=== PATIENT | female | born 1940 ===

== ENCOUNTER 2017-05-30 06:06 | Day surgery (SDC) | payer MEDICARE ==
[2017-05-23 14:24] VITALS: BMI 29.2
--- NOTE | 2017-05-30 07:10 | CP.SDSHP ---
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 All questions addressed with pt to satisfaction. NPO status confirmed and maintained. Medical optimization is in the chart. No guarantees given nor implied to patient. Pt is to follow up with Dr. Luis as an outpatient. Pt to be admitted post- operatively to Dr. Trevizo's service. - Date & Time Date: 05/30/17 Time: 07:00 Short Stay Discharge - Short Stay Discharge Admitting Diagnosis/Reason for Visit: BONE TUMOR 5TH TOE RIGHT Disposition: HOME/ ROUTINE
[2017-05-30] MEDS ORDERED: Bupivacaine 0.5% Inj(30mL) ONE (07:16)
[2017-05-30] MEDS ORDERED: Lidocaine 2% Inj (20ml) ONE (07:16)
[2017-05-30] MEDS ORDERED: Gentamicin 80 mg/2mL Inj. ONE (07:16)
[2017-05-30] MEDS ORDERED: levoFLOXacin 500 mg in D5W 500 MG/100 ML BAG IVPB ONE (07:46)
[2017-05-30] MEDS ORDERED: Midazolam 2 MG/2 ML VIAL ONE (07:53)
[2017-05-30] MEDS ORDERED: Propofol 10 mg/ml Inj (20 ML) ONE (07:53)
[2017-05-30] MEDS ORDERED: Lactated Ringer's 1,000 ML IV SCH (08:42)
[2017-05-30] MEDS ORDERED: HYDROmorphone 0.5 mg/0.5 ml ISec IVP PRN (08:42)
[2017-05-30] MEDS ORDERED: Oxycodone/Acetaminophen 5/325 mg Tab PO PRN (08:43)
--- NOTE | 2017-05-30 09:03 | PCM.SURG1 ---
Surgeon's Initial Post Op Note - Surgeon's Notes Surgeon: Dr. Luis Sectionizer: Dr. Kemp PGY-2 Type of Anesthesia: IV Sedation, Local Anesthesia Administered By: Dr. Flal Pre-Operative Diagnosis: painful hammertoe deformity right foot 5th digit with bone tumor Operative Findings: see operative report Post-Operative Diagnosis: same Operation Performed: arthroplasty right foot 5th digit with bone biopsy Specimen/Specimens Removed: bone right foot 5th middle phalanx, soft tissue right 5th digit Estimated Blood Loss: EBL {In ML}: 1 Blood Products Given: N/A Post-Op Condition: Good Date of Surgery/Procedure: 05/30/17 Time of Surgery/Procedure: 07:45
[2017-05-30] MEDS ORDERED: Oxycodone/Acetaminophen 5/325 mg Tab ONE (09:30)
[2017-05-30] MEDS: Oxycodone/Acetaminophen 5/325 mg Tab PO PRN (09:30)
--- NOTE | 2017-05-30 09:53 | RAD ---
PROCEDURE: Right Foot Radiographs. HISTORY: s/p right foot surgery COMPARISON: Prior right foot x-ray series 0 04/30/2017. FINDINGS: BONES: Patient may have undergone resection of in a of a large portion of the middle phalanx of the small digit versus interval erosion. Clinically correlate here. No emphysema soft tissues are identified. Heterotopic calcifications are appreciated dorsally once again. 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 Degenerate changes seen throughout the joints of the right foot diffusely once again. Local soft tissue edema is seen medial to the 1st metatarsophalangeal joint as well as throughout the right small digit. . JOINTS: See above. SOFT TISSUES: See above. OTHER FINDINGS: None. IMPRESSION: Postop changes middle phalanx right small digit versus erosion, potentially related to osteomyelitis. Further clinical correlation is advised. No acute fracture or dislocation. Prior bunionectomy suggested,once again. 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
[2017-05-30] MEDS ORDERED: levoFLOXacin 500 mg in D5W 500 MG/100 ML BAG IVPB SCH (10:00)
--- NOTE | 2017-05-30 22:07 | OP ---
PROCEDURE DATE: 05/30/2017 PREOPERATIVE DIAGNOSIS: Right foot fifth digit painful hammer toe deformity with exostosis. POSTOPERATIVE DIAGNOSIS: Right foot fifth digit painful hammer toe deformity with exostosis. NAME OF PROCEDURE: Arthroplasty of right fifth digit with bone biopsy. SURGEON: Dr. Luis. NANOSYSTEMS ENGINEER: Dr. Kemp, PGY2. BURGLAR ALARM MECHANIC: Dr. Fall. TYPE OF ANESTHESIA: IV sedation with local. INDICATIONS: The patient is a 76-year-old female with the above diagnosis. The patient has exhausted all conservative treatments at this time and now requests surgical intervention. Of note, patient states she has had a painful bump to the side of her right fifth toe for the past two months in duration. Patient has also had history of infection to the same toe recently. Had been on antibiotics as an outpatient. The patient *------* explanation of risks, benefits and complications and alternatives for the surgical procedure. No guarantees were given nor implied. *------* was confirmed prior to taking the patient to the operating room. PREPARATION: The patient was brought to the operating room and placed on the operating room table in supine position. After induction of IV sedation, the patient received a total of 6 mL of a 1:1 mixture of 0.5% Marcaine plain and 2% lidocaine plain in local block fashion to the right foot. Once local anesthesia was achieved, the foot was then prepped and draped in the usual sterile manner. Esmarch was utilized to exsanguinate the patient's right foot, and pneumatic ankle tourniquet was then inflated to 250 mmHg and the procedure began. DESCRIPTION OF PROCEDURE: Arthroplasty of right fifth digit with bone biopsy. Attention was then drawn to the dorsal aspect of the right foot fifth digit where a hammer toe deformity was noted to the DIPJ of the right fifth digit. Using a #15 blade, an approximately 3 cm incision was made over the DIPJ of the right fifth digit. The incision was extended down through superficial subcutaneous tissue. Once the extensor tendon was identified, #15 blade was utilized to tenotomize the tendon at the level of the DIPJ. The tendon was then reflected proximally and distally to expose the DIPJ. At this time, a #15 blade was utilized to remove the collateral ligament medial and laterally to expose the head of the middle phalanx of the fifth digit. At this time, a double action bone cutter was utilized to excise the head of the middle phalanx, which was then passed off the operative field and sent for both bone biopsy and pathology. As this cut was made, there appeared to be a white tophus-type material within the tendon itself and the bone was excised. At this time, a bone rasp was utilized to smooth all roughened edges of the distal aspect of the remaining middle phalanx. Additionally, the rasp was utilized to remove the cartilage off the head of the proximal phalanx. A sterile normal saline was utilized to copiously flush the surgical wound. The extensor tendon was then repaired using 2-0 Vicryl suture, 2-0 Vicryl suture was utilized to close the subcutaneous tissues, 3-0 nylon suture was then utilized to close the skin edges using simple suture technique. It should be noted that during the procedure, the patient received an additional 6 mL of 1% lidocaine plain. The foot was then cleansed with sterile saline, dried and then a dressing consisting of Betadine-soaked Adaptic, DSD, Kerlix and lightly wrapped Coban was then applied to the right foot. Immediate capillary refill time was noted to all digits of the right foot. POSTOPERATIVE CONDITION: The patient tolerated the anesthesia and procedure well and was escorted to the recovery room with vital signs stable, neurovascular status intact to the right foot. The patient will be admitted postoperatively for observation under Dr. Trevizo's service. Podiatry will continue to follow the patient while she remains in-house. The patient will follow up with Dr. Luis as an outpatient. Richelle Luis DPM
[2017-05-31 07:59] VITALS: RESP 20
[2017-05-31] MEDS ORDERED: levoFLOXacin 500 MG TAB PO SCH (10:00)
--- NOTE | 2017-05-31 11:52 | CP.PCM.PN ---
<ViridianaAlee - Last Filed: 05/31/17 11:48> Subjective - Date & Time of Evaluation Date of Evaluation: 05/31/17 Time of Evaluation: 10:15 - Subjective Subjective: 76 yo diabetic female pt seen at bedside this morning POD#1 right foot 5th digit arthroplasty w/ excision of bone mass. Pt seen resting comfortably at bedside this morning. Denies f/n/v/c/sob/cp overnight.Does complain of some slight tenderness to 5th toe today, however does say pain medication is helping. Says she has not received the surgical shoe yet and is waiting for physical therapy. Denies any other problems at this time. Objective - Vital Signs/Intake and Output Vital Signs (last 24 hours): Temp Pulse Resp BP Pulse Ox 98.3 F 60 20 110/62 99 05/31/17 07:58 05/31/17 10:41 05/31/17 07:58 05/31/17 10:41 05/31/17 07:58 Intake and Output: 05/31/17 05/31/17 06:59 18:59 Intake Total 780 Balance 780 - Medications Medications: Current Medications Acetaminophen (Tylenol 325mg Tab) 650 mg PO Q4H PRN PRN Reason: Pain, Mild (1-3) Alendronate Sodium (Fosamax) 70 mg PO Q7D@0600 [facility] Levofloxacin (Levaquin) 500 mg PO DAILY [facility] Last Admin: 05/31/17 10:42 Dose: 500 mg Losartan Potassium (Cozaar) 25 mg PO DAILY [facility] Last Admin: 05/31/17 10:41 Dose: 25 mg Metformin HCl (Glucophage) 500 mg PO DAILY [facility] Last Admin: 05/31/17 10:41 Dose: Not Given Oxycodone/Acetaminophen (Percocet 5/325 Mg Tab) 1 tab PO Q4H PRN PRN Reason: Pain, moderate (4-7) Stop: 06/02/17 08:44 Last Admin: 05/31/17 08:05 Dose: 1 tab Oxycodone/Acetaminophen (Percocet 5/325 Mg Tab) 2 tab PO Q4H PRN PRN Reason: Pain, severe (8-10) Stop: 06/02/17 08:44 Last Admin: 05/30/17 09:30 Dose: 2 tab - Constitutional Appears: Well, Non-toxic, No Acute Distress - Extremities Exam Extremities Exam: absent: Calf Tenderness Additional comments: Right foot focused: Dressing appears c/d/i to right foot VASC- pedal pulses are palpable, skin temp runs warm to cool, cft < 3 sec to all digits, mild edema noted to distal-lateral forefoot NEURO- pedal sensation is grossly intact DERM- surgical incision site over dorsum of 5th digit appears well-coapted, no dehisence, no drainage, no erythema, no calor, no signs infection ORTHO- slight tenderness palp of 5th digit - Neurological Exam Neurological Exam: Alert, Awake, Oriented x3 - Psychiatric Exam Psychiatric exam: Normal Affect, Normal Mood Assessment and Plan - Assessment and Plan (Free Text) Assessment: 76 yo female pt POD#1 right foot 5th digit arthroplasty w/ excision of bone mass Plan: Pt S&E at bedside Discussed in detail with attending Dr. Oliveira Chart labs and vitals reviewed: afebrile Dressing changed with adaptic, DSD, kerlix and KATHY wrap Pt is to keep dressing c/d/i Pending physical therapy evaluation today Full WBAT with surgical shoe to right foot, advised pt to avoid weight to forefoot Stable per podiatry service Pt is to f/u with Dr. Luis at the wound care center next week <Richelle Luis - Last Filed: 05/31/17 14:26> Objective - Vital Signs/Intake and Output Vital Signs (last 24 hours): Temp Pulse Resp BP Pulse Ox 98.3 F 60 20 110/62 99 05/31/17 07:58 05/31/17 10:41 05/31/17 07:58 05/31/17 10:41 05/31/17 07:58 Intake and Output: 05/31/17 05/31/17 06:59 18:59 Intake Total 780 Balance 780 - Medications Medications: Current Medications Acetaminophen (Tylenol 325mg Tab) 650 mg PO Q4H PRN PRN Reason: Pain, Mild (1-3) Alendronate Sodium (Fosamax) 70 mg PO Q7D@0600 [facility] Levofloxacin (Levaquin) 500 mg PO DAILY [facility] Last Admin: 05/31/17 10:42 Dose: 500 mg Losartan Potassium (Cozaar) 25 mg PO DAILY [facility] Last Admin: 05/31/17 10:41 Dose: 25 mg Metformin HCl (Glucophage) 500 mg PO DAILY [facility] Last Admin: 05/31/17 10:41 Dose: Not Given Oxycodone/Acetaminophen (Percocet 5/325 Mg Tab) 1 tab PO Q4H PRN PRN Reason: Pain, moderate (4-7) Stop: 06/02/17 08:44 Last Admin: 05/31/17 08:05 Dose: 1 tab Oxycodone/Acetaminophen (Percocet 5/325 Mg Tab) 2 tab PO Q4H PRN PRN Reason: Pain, severe (8-10) Stop: 06/02/17 08:44 Last Admin: 05/30/17 09:30 Dose: 2 tab Attending/Attestation - Attestation I have personally seen and examined this patient.: Yes I have fully participated in the care of the patient.: Yes I have reviewed all pertinent clinical information, including history, physical exam and plan: Yes
[2017-05-31 15:39] VITALS: BP 137/64; PULSE 61; TEMP 97.6; O2SAT 96
--- NOTE | 2017-05-31 16:29 | CP.PCM.PN ---
Subjective - Date & Time of Evaluation Date of Evaluation: 05/31/17 Time of Evaluation: 16:15 - Subjective Subjective: Pt is being discharged today. As per request of Dr Trevizo Rx given for a rolling walker. As per request of Dr Richardson Rx given for Levaquin 500 mg po daily for 7 days. Patient is to follow up with her PMDs as advised. Objective - Vital Signs/Intake and Output Vital Signs (last 24 hours): Temp Pulse Resp BP Pulse Ox 97.6 F 61 20 137/64 96 05/31/17 15:38 05/31/17 15:38 05/31/17 15:38 05/31/17 15:38 05/31/17 15:38 Intake and Output: 05/31/17 05/31/17 06:59 18:59 Intake Total 780 Balance 780 - Medications Medications: Current Medications Acetaminophen (Tylenol 325mg Tab) 650 mg PO Q4H PRN PRN Reason: Pain, Mild (1-3) Alendronate Sodium (Fosamax) 70 mg PO Q7D@0600 [facility] Levofloxacin (Levaquin) 500 mg PO DAILY [facility] Last Admin: 05/31/17 10:42 Dose: 500 mg Losartan Potassium (Cozaar) 25 mg PO DAILY [facility] Last Admin: 05/31/17 10:41 Dose: 25 mg Metformin HCl (Glucophage) 500 mg PO DAILY [facility] Last Admin: 05/31/17 10:41 Dose: Not Given Oxycodone/Acetaminophen (Percocet 5/325 Mg Tab) 1 tab PO Q4H PRN PRN Reason: Pain, moderate (4-7) Stop: 06/02/17 08:44 Last Admin: 05/31/17 08:05 Dose: 1 tab Oxycodone/Acetaminophen (Percocet 5/325 Mg Tab) 2 tab PO Q4H PRN PRN Reason: Pain, severe (8-10) Stop: 06/02/17 08:44 Last Admin: 05/30/17 09:30 Dose: 2 tab
[2017-05-31] MEDS: Oxycodone/Acetaminophen 5/325 mg Tab PO PRN (17:51)
--- NOTE | 2017-06-01 01:02 | DS ---
HISTORY OF PRESENT ILLNESS: The patient is 76 years old female who was brought to same day surgery because of right fifth digit bone biopsy since she was found to have bony mass on the fifth digit, so she underwent arthroplasty and biopsy done. The patient was admitted under Dr. Luis's service. She has surgical site. PAST MEDICAL HISTORY: Otherwise, her past medical history is significant for; 1. Noninsulin-dependent diabetes. 2. History of osteoporosis. 3. Hypertension. ALLERGIES: SHE IS NOT ALLERGIC TO ANY MEDICATIONS. MEDICATIONS AT HOME: The patient is on metformin 500 daily, losartan 25 daily, Zyrtec 10 mg daily, Fosamax 70 mg once a week, Percocet as needed, Levaquin 500 daily, and Tylenol as needed. SOCIAL HISTORY: She lives by herself. Denies smoking or drinking alcohol. REVIEW OF SYSTEMS: Some discomfort to the right foot at surgical site; however, she is ambulating fine while going to the bathroom by herself. PHYSICAL EXAMINATION: VITAL SIGNS: She is afebrile, pulse 61, respirations 20 and blood pressure 127/64. LUNGS: Bilateral clear airflow. No rhonchi or crackles. HEART: S1 and S2 audible. ABDOMEN: Soft and nontender. No rebound. No guarding. NEUROLOGIC: She is awake and alert, able to communicate and ambulatory. ASSESSMENT: 1. Right fifth digit bony tumor, status post excision of arthroplasty. 2. Noninsulin-dependent diabetes. 3. Hypertension. PLAN: The patient is being discharged home on Percocet. She will resume her medications as prior to admission that include metformin and losartan. She will follow up with Dr. Luis as outpatient for her wound care. Holden Trevizo MD
== END 2017-05-31 18:50 | disposition home or self-care (01) ==
LOC: SDS 06:06 → 5RSO 10:34 → SDS 05-31 18:50
PROVIDERS: ATTEND Internal Medicine
DX: M20.41 Other hammer toe(s) (acquired), right foot (principal)
CPT/HCPCS: 20240; 28286; 73630; 82948 ×2; 88304; 88307; 88311; 97116; 97161; 97530; G8978; G8979; G8980; J1170; J2250; J2704; J7120 ×2

== ENCOUNTER 2018-01-03 10:39 | Inpatient (IN) | payer MEDICARE ==
[2018-01-03 11:08] VITALS: BMI 28.3
--- NOTE | 2018-01-03 11:34 | ED PDOC ---
Arrival/HPI - General Time Seen by Provider: 01/03/18 11:04 Historian: Patient - History of Present Illness Narrative History of Present Illness (Text): 01/03/18 11:31 77 year old female, with past medical history of hypertension and diabetes type II, presents to the Emergency department complaining of lower abdominal discomfort for past 2 days. Patient informs the onset of discomfort began shortly after getting colonoscopy done on Saturday, yet the result for colonoscopy was benign. Patient denies difficulty eating or urinating. Patient informs eating 2 eggs, muffin and some coffee prior to arrival. Patient denies any fever, chills, nausea, vomiting, chest pain, hematuria, shortness of breath , trauma or any other complaints. PMD: Dr. Ervin Time/Duration: < week Symptom Onset: Gradual Symptom Course: Unchanged Quality: Aching Activities at Onset: Light Context: Home Past Medical History - Provider Review Nursing Documentation Reviewed: Yes - Infectious Disease Hx of Infectious Diseases: None - Cardiac Hx Pacemaker: No - Neurological Hx Paralysis: No - Endocrine/Metabolic Hx Diabetes Mellitus Type 2: Yes - Hematological/Oncological Hx Blood Transfusions: No - Musculoskeletal/Rheumatological Hx Musculoskeletal Disorders: Yes - Psychiatric Hx Physical Abuse: No Hx Substance Use: No - Surgical History Hx Hysterectomy: Yes Hx Orthopedic Surgery: Yes (Sum[facility] knee surgery) Other/Comment: Colonoscopy/Endoscopy - Anesthesia Hx Anesthesia: Yes Hx Anesthesia Reactions: No Hx Malignant Hyperthermia: No - Suicidal Assessment Feels Threatened In Home Enviroment: No Family/Social History - Physician Review Nursing Documentation Reviewed: Yes Family/Social History: No Known Family HX Smoking Status: Never Smoked Hx Alcohol Use: No Hx Substance Use: No Allergies/Home Meds Allergies/Adverse Reactions: Allergies No Known Allergies Allergy (Verified 05/20/16 14:28) Home Medications: Home Meds Medication Instructions Recorded Confirmed metFORMIN [glucOPHAGE] 500 mg PO BID 05/20/16 01/03/18 Alendronate [Fosamax] 70 mg PO WED 05/23/17 01/03/18 Losartan Potassium 50 mg PO DAILY 05/23/17 01/03/18 Review of Systems - Physician Review All systems were reviewed & negative as marked: Yes - Review of Systems Constitutional: Normal. absent: Fevers Eyes: Normal ENT: Normal Respiratory: Normal. absent: SOB Cardiovascular: Normal. absent: Chest Pain Gastrointestinal: Abdominal Pain. absent: Diarrhea, Nausea, Vomiting Genitourinary Female: Normal. absent: Hematuria Musculoskeletal: Normal Skin: Normal Neurological: Normal Endocrine: Normal Hemo/Lymphatic: Normal Psychiatric: Normal Physical Exam Vital Signs Reviewed: Yes Vital Signs Temp Pulse Resp BP Pulse Ox 01/03/18 15:31 98.3 F 100 H 16 132/81 98 01/03/18 12:26 96 H 18 127/71 95 01/03/18 11:13 98.1 F 104 H 18 129/75 95 Temperature: Afebrile Blood Pressure: Normal Pulse: Tachycardic Respiratory Rate: Normal Appearance: Positive for: Well-Appearing, Non-Toxic, Comfortable Pain Distress: None Mental Status: Positive for: Alert and Oriented X 3 - Systems Exam Head: Present: Atraumatic, Normocephalic Pupils: Present: PERRL Extroacular Muscles: Present: EOMI Conjunctiva: Present: Normal Mouth: Present: Moist Mucous Membranes Neck: Present: Normal Range of Motion Respiratory/Chest: Present: Clear to Auscultation, Good Air Exchange. No: Respiratory Distress, Accessory Muscle Use Cardiovascular: Present: Regular Rate and Rhythm, Normal S1, S2. No: Murmurs Abdomen: Present: Tenderness (minimal tenderness to palpation across lower abdomen. No nonfocal tenderness, garuding or rebound.), Normal Bowel Sounds. No : Distention, Peritoneal Signs, Rebound, Guarding, Hernias Back: Present: Normal Inspection Upper Extremity: Present: Normal Inspection. No: Cyanosis, Edema Lower Extremity: Present: Normal Inspection. No: Edema Neurological: Present: GCS=15, CN II-XII Intact, Speech Normal Skin: Present: Warm, Dry, Normal Color. No: Rashes Psychiatric: Present: Alert, Oriented x 3, Normal Insight, Normal Concentration , Anxious Medical Decision Making ED Course and Treatment: 01/03/18 11:36 Impression: 77 year old female presents to the Emergency department for lower abdominal discomfort. Plan: -- CT of Abdomen/Pelvis -- Labs -- Urinalysis -- Reassess and disposition Progress Notes: 01/03/18 14:09 CT of Abdomen/Pelvis reviewed by radiologist, shows perforation of the sigmoid colon with multiple pockets of free air. 01/03/18 15:46 Chest X-ray reviewed by radiologist, shows no active disease. - Lab Interpretations Lab Results: 01/03/18 11:45 01/03/18 11:45 Lab Results 01/03/18 14:40: Blood Type Confirm O POSITIVE 01/03/18 14:00: Blood Type O POSITIVE, Antibody Screen Negative, BBK History Checked No verified bt 01/03/18 11:45: PT 12.7 H, INR 1.11 H 01/03/18 11:45: Sodium 139, Potassium 4.0, Chloride 103, Carbon Dioxide 22, Anion Gap 17, BUN 13, Creatinine 0.7, Est GFR ( Amer) > 60, Est GFR (Non- Af Amer) > 60, Random Glucose 131 H, Calcium 9.3, Total Bilirubin 0.5, AST 19, ALT 26, Alkaline Phosphatase 79, Total Protein 7.5, Albumin 3.8, Globulin 3.7, Albumin/Globulin Ratio 1.0 L 01/03/18 11:45: WBC 14.4 H D, RBC 4.23, Hgb 10.7 L, Hct 33.8 L, MCV 79.9 L D, MCH 25.3, MCHC 31.7, RDW 16.9 H, Plt Count 272, MPV 9.7, Gran % 77.4 H, Lymph % (Auto) 12.1 L, [place] % (Auto) 9.0 H, Eos % (Auto) 1.4 L, Baso % (Auto) 0.1, Gran # 11.15 H, Lymph # (Auto) 1.8, [place] # (Auto) 1.3 H, Eos # (Auto) 0.2, Baso # ( Auto) 0.02 - RAD Interpretation Radiology Orders: 01/03/18 11:32 ABDOMEN & PELVIS [ABD PELVIS PO & IV CONTRAST] [CT] Stat 01/03/18 13:54 CHEST PORTABLE [RAD] Stat - Medication Orders Current Medication Orders: Sodium Chloride (Sodium Chloride 0.9%) 1,000 mls @ 100 mls/hr IV .Q10H [facility] Last Admin: 01/03/18 14:11 Dose: 100 mls/hr eMAR Start Stop Document 01/03/18 14:11 HP (Rec: 01/03/18 14:12 HP [email or web address] Intravenous Solution Start Date 01/03/18 Start Time 14:12 Discontinued Medications Hydromorphone HCl (Dilaudid) 0.5 mg IVP STAT STA Stop: 01/03/18 14:07 Last Admin: 01/03/18 14:12 Dose: 0.5 mg MAR Pain Assessment Document 01/03/18 14:12 HP (Rec: 01/03/18 14:12 HP [facility] [email or web address] Pain Reassessment Is this a pain reassessment? No IVP Administration Document 01/03/18 14:12 HP (Rec: 01/03/18 14:12 HP [email or web address] Charges for Administration # of IVP Administrations 1 Piperacillin Sod/Tazobactam Sod (Zosyn 4.5 Gm In Ns 100ml) 4.5 gm in 100 mls @ 200 mls/hr IVPB STAT STA PRN Reason: Protocol Stop: 01/03/18 14:27 Last Admin: 01/03/18 14:10 Dose: 200 mls/hr eMAR Start Stop Document 01/03/18 14:10 HP (Rec: 01/03/18 14:11 HP [email or web address] Intravenous Solution Start Date 01/03/18 Start Time 14:10 End Date 01/03/18 End time 14:40 Total Infusion Time 30 - Scribe Statement The provider has reviewed the documentation as recorded by the Scribe Kim Denton. All medical record entries made by the Scribe were at my direction and personally dictated by me. I have reviewed the chart and agree that the record accurately reflects my personal performance of the history, physical exam, medical decision making, and the department course for this patient. I have also personally directed, reviewed, and agree with the discharge instructions and disposition. Disposition/Present on Arrival - Present on Arrival Any Indicators Present on Arrival: No History of DVT/PE: No History of Uncontrolled Diabetes: No Urinary Catheter: No History of Decub. Ulcer: No History Surgical Site Infection Following: None - Disposition Have Diagnosis and Disposition been Completed?: Yes Diagnosis: Perforated viscus Disposition: HOSPITALIZED Disposition Time: 14:15 Patient Plan: Admission Patient Problems: Current Active Problems Problem Status Onset Perforated viscus Acute Condition: STABLE Referrals: [facility], [Non-Staff] - Follow up with primary
[2018-01-03] MEDS ORDERED: Iohexol 240 (50 ml) ONE (11:37)
[2018-01-03] MEDS ORDERED: Iohexol 350 MG/100 ML VIAL ONE (11:45)
[2018-01-03 11:59] LABS: BASO # 0.02 K/mm3 (0.0-2.0); BASO % 0.1 % (0.0-3.0); EOS # 0.2 (0.0-0.7); EOS % 1.4 % (1.5-5.0); GRAN # 11.15 (1.4-6.5); GRAN % 77.4 % (50.0-68.0); HEMOGLOBIN 10.7 g/dL (12.0-16.0); LYMPH # 1.8 (1.2-3.4); LYMPH % 12.1 % (22.0-35.0); MEAN CELL VOLUME 79.9 fl (80.0-105.0); MEAN CORPUSCULAR HEMOGLOBIN 25.3 pg (25.0-35.0); MEAN CORPUSCULAR HGB CONC 31.7 g/dl (31.0-37.0); MEAN PLATELET VOLUME 9.7 fl (7.0-11.0); MONO # 1.3 (0.1-0.6); RBC 4.23 10^6/uL (3.5-6.1); RED CELL DISTRIBUTION WIDTH 16.9 % (11.5-14.5); WHITE BLOOD COUNT 14.4 10^3/ul (4.5-11.0)
[2018-01-03 12:08] LABS: ALBUMIN 3.8 g/dL (3.0-4.8); ALT/SGPT 26 U/L (7-56); AST/SGOT 19 U/L (14-36); BLOOD UREA NITROGEN 13 mg/dL (7-21); CALCIUM 9.3 mg/dL (8.4-10.5); GFR AFRICAN-AMERICAN > 60; GFR NON-AFRICAN AMERICAN > 60
[2018-01-03] MEDS ORDERED: HYDROmorphone 0.5 mg/0.5 ml ISec IM STA (13:55)
[2018-01-03] MEDS ORDERED: Piperacill/Tazo 4.5gm in NS 4.5 GM/100 ML BAG IVPB STA (13:58)
[2018-01-03] MEDS ORDERED: Sodium Chloride 0.9% 1,000 ML IV SCH (14:00)
--- NOTE | 2018-01-03 14:05 | CT ---
PROCEDURE: CT Abdomen and Pelvis with contrast HISTORY: pain s/p colonoscopy COMPARISON: None. TECHNIQUE: Contrast dose: 100 cc of Omni 350 Radiation dose: Total exam DLP = 568 mGy-cm. This CT exam was performed using one or more of the following dose reduction techniques: Automated exposure control, adjustment of the mA and/or kV according to patient size, and/or use of iterative reconstruction technique. FINDINGS: LOWER THORAX: Unremarkable. LIVER: Unremarkable. No gross lesion or ductal dilatation. GALLBLADDER AND BILE DUCTS: Unremarkable. PANCREAS: Unremarkable. No gross lesion or ductal dilatation. SPLEEN: Unremarkable. ADRENALS: Unremarkable. No mass. KIDNEYS AND URETERS: Unremarkable. No hydronephrosis. No solid mass. VASCULATURE: Unremarkable. No aortic aneurysm. BOWEL: There is evidence of bowel perforation at the sigmoid colon. There is a large amount of extra luminal air surrounding the sigmoid. The air can also be seen in the right pericolic gutter and extending into the right inguinal region. Small amounts of air dissect along the aorta anteriorly. This can be seen on image 58. Inflammatory changes are also seen adjacent to the sigmoid colon laterally. The findings were reviewed with Dr. See at 2 p.m. APPENDIX: Normal appendix. PERITONEUM: As above LYMPH NODES: Unremarkable. No enlarged lymph nodes. BLADDER: Unremarkable. REPRODUCTIVE: Unremarkable. BONES: No acute fracture. OTHER FINDINGS: None. IMPRESSION: Perforation of the sigmoid colon with multiple pockets of free air. See comment
[2018-01-03] MEDS ORDERED: HYDROmorphone 0.5 mg/0.5 ml ISec IVP STA (14:06)
[2018-01-03 14:46] LABS: INR 1.11 (0.93-1.08); PROTHROMBIN TIME 12.7 SECONDS (9.4-12.5)
[2018-01-03] MEDS ORDERED: Morphine 4 mg/ml ISec IVP PRN (15:35)
--- NOTE | 2018-01-03 15:37 | RAD ---
HISTORY: pain COMPARISON: 05/23/2017 FINDINGS: LUNGS: No active pulmonary disease. PLEURA: No significant pleural effusion identified, no pneumothorax apparent. CARDIOVASCULAR: Normal. OSSEOUS STRUCTURES: No significant abnormalities. VISUALIZED UPPER ABDOMEN: Normal. OTHER FINDINGS: None. IMPRESSION: No active disease.
--- NOTE | 2018-01-03 15:46 | CP.PCM.CON ---
History of Present Illness - History of Present Illness History of Present Illness: Surgery consult note for Dr. Devan Acosta DO, PGY - 1 Reason For Consult: Bowel Perf HPI: 77 female with past medical history pertinent for diverticular disease presents with 2 day history of acute onset right lower quadrant pain that began on Saturday following a colonoscopy at [facility]. The patient states that the pain was intense and began right after the colonscopy and has been constant since then. The pain is localized to the lower abdomen bilaterally. The patient decided to come in to the hospital today when the pain became unbearable. The pain is associated with nausea but no vomiting. She has had one bowel movement following the colonoscopy. The patient did travel to [facility] two months ago after which she had diarrhea and flu like symptoms including fevers and chills. She did not have a flu test. Past Surgical History: Arthroplasty, Hernia repair, Total hysterectomy Past Medical History: Diabetes, hernia, hypertension, diverticular disease Allergies: Denies Social History: Denies tobacco, alcohol and illicit drug use Hospitalizations: May 2017 for Arthroplasty of 5th digit on R foot Family History: Non-contributory Medications: Metformin, Losartan, Alendronate Review of Systems: 12 point review of systems obtained, and are negative except for HPI Past Patient History - Infectious Disease Hx of Infectious Diseases: None - Past Social History Smoking Status: Never Smoked - CARDIAC Hx Pacemaker: No - NEUROLOGICAL Hx Paralysis: No - ENDOCRINE/METABOLIC Hx Diabetes Mellitus Type 2: Yes - HEMATOLOGICAL/ONCOLOGICAL Hx Blood Transfusions: No - MUSCULOSKELETAL/RHEUMATOLOGICAL Hx Musculoskeletal Disorders: Yes - PSYCHIATRIC Hx Physical Abuse: No Hx Substance Use: No - SURGICAL HISTORY Hx Hysterectomy: Yes Hx Orthopedic Surgery: Yes (Sumanth knee surgery) Other/Comment: Colonoscopy/Endoscopy - ANESTHESIA Hx Anesthesia: Yes Hx Anesthesia Reactions: No Hx Malignant Hyperthermia: No Meds Allergies/Adverse Reactions: Allergies Allergy/AdvReac Type Severity Reaction Status Date / Time No Known Allergies Allergy Verified 05/20/16 14:28 - Medications Medications: Current Medications Sodium Chloride (Sodium Chloride 0.9%) 1,000 mls @ 100 mls/hr IV .Q10H [facility] Last Admin: 01/03/18 14:11 Dose: 100 mls/hr Physical Exam - Additional Findings Additional findings: Physical Exam: Vital Signs as below Const'l: awake alert & oriented x 4, no acute distress Head/Neck: +no lymphadenopathy; neck supple, no jvd, trachea midline, carotid midline, no cervical/head mass Eyes: pupils equally reactive to light and accommodation, nonicteric sclera, extraocular intact ENT: auditory acuity grossly intact, throat not congested, no nasal deformity Cardio: regular rate, regular rhythm, no murmurs rubs gallops, no carotid bruit, normal s1, s2 Pulm: no accessory muscle use, equal normal breath sounds bilaterally, clear to ausculation bilaterally Abd: +tender to palpation in both right and left lower quadrants; + voluntary guarding localized to suprapubic region no rebound, soft, not rigid, non-distended Derm: no rashes, no ulcers, no lesions Extr: no edema, no cyanosis, no calf tenderness, no lesions, no varicosities Neuro: cranial nerves II-XII grossly intact, upper extremity and lower extremity 5/5 muscle strength bilaterally, no loss of sensation in upper extremities, lower extremities bilaterally Results - Vital Signs Recent Vital Signs: Last Vital Signs Temp 98.3 F 01/03/18 15:31 Pulse 100 H 01/03/18 15:31 Resp 16 01/03/18 15:31 BP 132/81 01/03/18 15:31 Pulse Ox 98 01/03/18 15:31 - Labs Result Diagrams: 01/03/18 11:45 01/03/18 11:45 Labs: Laboratory Results - last 24 hr 01/03/18 01/03/18 01/03/18 11:45 11:45 11:45 WBC 14.4 H D RBC 4.23 Hgb 10.7 L Hct 33.8 L MCV 79.9 L D MCH 25.3 MCHC 31.7 RDW 16.9 H Plt Count 272 MPV 9.7 Gran % 77.4 H Lymph % (Auto) 12.1 L [place] % (Auto) 9.0 H Eos % (Auto) 1.4 L Baso % (Auto) 0.1 Gran # 11.15 H Lymph # (Auto) 1.8 [place] # (Auto) 1.3 H Eos # (Auto) 0.2 Baso # (Auto) 0.02 PT 12.7 H INR 1.11 H Sodium 139 Potassium 4.0 Chloride 103 Carbon Dioxide 22 Anion Gap 17 BUN 13 Creatinine 0.7 Est GFR ( Amer) > 60 Est GFR (Non-Af Amer) > 60 Random Glucose 131 H Calcium 9.3 Total Bilirubin 0.5 AST 19 ALT 26 Alkaline Phosphatase 79 Total Protein 7.5 Albumin 3.8 Globulin 3.7 Albumin/Globulin Ratio 1.0 L Blood Type Antibody Screen BBK History Checked 01/03/18 14:00 WBC RBC Hgb Hct MCV MCH MCHC RDW Plt Count MPV Gran % Lymph % (Auto) [place] % (Auto) Eos % (Auto) Baso % (Auto) Gran # Lymph # (Auto) [place] # (Auto) Eos # (Auto) Baso # (Auto) PT INR Sodium Potassium Chloride Carbon Dioxide Anion Gap BUN Creatinine Est GFR ( Amer) Est GFR (Non-Af Amer) Random Glucose Calcium Total Bilirubin AST ALT Alkaline Phosphatase Total Protein Albumin Globulin Albumin/Globulin Ratio Blood Type O POSITIVE Antibody Screen Negative BBK History Checked No verified bt Assessment & Plan - Assessment and Plan (Free Text) Assessment: 77 year old female with pertinent history of diverticular disease presents with bowel perforation following a colonoscopy. CT abdomen/pelvis does show free around the sigmoid colon. Review of labs and vitals reveals 2 SIRS of leukocytosis 14.4 and HR of 96; Source of infection in sigmoid colon classifies patient as Septic. Chest xray was normal and does not show free air under the diaphragm. Plan: -Admit to telemetry on hospitalist service -Strict I/O -Recommend GI and ID consult -Start Ciprofloxacin and Flagyl -LR @ 125 -DVT Prophylaxis -Morphine 4mg for moderate, 6mg for severe pain -Zofran PRN -monitor vitals q2 and response to pain meds -serial abdominal series -NPO -Recs per Dr. Hartman
[2018-01-03] MEDS ORDERED: Morphine 2 mg/ml ISec IVP PRN (15:55)
[2018-01-03 16:33] LABS: URINE BILIRUBIN NEGATIVE (NEGATIVE); URINE BLOOD TRACE-INTACT (NEGATIVE); URINE GLUCOSE (UA) NEGATIVE (NEGATIVE); URINE LEUKOCYTE ESTERASE NEGATIVE Leu/uL (NEGATIVE); URINE NITRATE NEGATIVE (NEGATIVE); URINE PROTEIN NEGATIVE mg/dL (<30 mg/dL); URINE UROBILINOGEN 0.2 E.U./dL (<1 E.U./dL)
[2018-01-03 16:39] LABS: URINE APPEARANCE CLEAR (CLEAR); URINE COLOR YELLOW (YELLOW)
[2018-01-03 16:50] LABS: URINE BACTERIA FEW (NEG); URINE RBC 0 - 2 /hpf (0-2)
[2018-01-03] MEDS: Lactated Ringer's 1,000 ML IV SCH ×2 (16:54→20:03)
--- NOTE | 2018-01-03 17:34 | CP.PCM.HP ---
<Everardo Blount - Last Filed: 01/03/18 18:08> History of Present Illness - History of Present Illness History of Present Illness: Chief complaint: Abdominal pain s/p colonoscopy HPI: Patient is a 77 year old female with a past medical history significant for diverticular disease, hypertension, diabetes, and anemia who presents to [facility] with complaints of abominal pain associated with fevers and chills after colonoscopy performed on 01/01/18. Patient states that her primary care physician referred her to a dental manager after noting she was becoming anemic. Patient was then referred to [facility] for colonoscopy and future endoscopy. She relays that right after the procedure is when she began feeling the sharp bilateral lower abdominal pain rating it a 10/10. Patient states the pain was localized and non radiating. Pain was exacerbated with laying down, and relieved at times with turnnig from side to side or sitting in an upright position. Patient endorses the ability to pass gas, make bowel movements. Denies vomiting despite efforts to induce vomiting, denies chest pain, shortness of breath, diarrhea, cough. Upon being admitted patient states she was very nauseous and complained of a headache, which have been relieved with the antiemetics and pain medication given while in the emergency department. To note, patient recently has returned from a two month stay in [facility]. When patient returned she experienced bouts of diarrhea as well as the flu. PMD: Dr. Ervin Past Surgical History:Arthroplasty, Hernia repair, Total hysterectomy Past Medical History: Diabetes, hernia, hypertension, diverticular disease Allergies: Denies Social History: Denies tobacco, alcohol and illicit drug use Family History: Non-contributory Medications: Metformin, Cozaar Present on Admission - Present on Admission Any Indicators Present on Admission: No Review of Systems - Constitutional Constitutional: Chills, Fever, Headache, Night Sweats - EENT Eyes: absent: Blurred Vision, Change in Vision Nose/Mouth/Throat: absent: Nasal Congestion, Nasal Discharge - Cardiovascular Cardiovascular: absent: Chest Pain, Dyspnea - Respiratory Respiratory: absent: Cough, Dyspnea - Gastrointestinal Gastrointestinal: Abdominal Pain, Nausea. absent: Diarrhea, Vomiting - Genitourinary Genitourinary: absent: Difficulty Urinating, Dysuria - Musculoskeletal Musculoskeletal: absent: Arthralgias, Back Pain - Neurological Neurological: absent: Dizziness, Numbness - Psychiatric Psychiatric: absent: Anxiety, Difficulty Concentrating - Hematologic/Lymphatic Hematologic: absent: Easy Bleeding, Easy Bruising Past Patient History - Infectious Disease Hx of Infectious Diseases: None - Past Social History Smoking Status: Never Smoked - CARDIAC Hx Pacemaker: No - NEUROLOGICAL Hx Paralysis: No - ENDOCRINE/METABOLIC Hx Diabetes Mellitus Type 2: Yes - HEMATOLOGICAL/ONCOLOGICAL Hx Blood Transfusions: No - MUSCULOSKELETAL/RHEUMATOLOGICAL Hx Musculoskeletal Disorders: Yes - PSYCHIATRIC Hx Physical Abuse: No Hx Substance Use: No - SURGICAL HISTORY Hx Hysterectomy: Yes Hx Orthopedic Surgery: Yes (Sumanth knee surgery) Other/Comment: Colonoscopy/Endoscopy - ANESTHESIA Hx Anesthesia: Yes Hx Anesthesia Reactions: No Hx Malignant Hyperthermia: No Meds Allergies/Adverse Reactions: Allergies Allergy/AdvReac Type Severity Reaction Status Date / Time No Known Allergies Allergy Verified 05/20/16 14:28 Physical Exam - Constitutional Appears: In Acute Distress - Head Exam Head Exam: ATRAUMATIC, NORMAL INSPECTION, NORMOCEPHALIC - Eye Exam Eye Exam: EOMI, Normal appearance - ENT Exam ENT Exam: Mucous Membranes Moist, Normal Exam - Neck Exam Neck exam: Positive for: Normal Inspection - Respiratory Exam Respiratory Exam: Clear to Auscultation Bilateral, NORMAL BREATHING PATTERN. absent: Rhonchi, Wheezes - Cardiovascular Exam Cardiovascular Exam: REGULAR RHYTHM, +S1, +S2 - GI/Abdominal Exam GI & Abdominal Exam: Guarding (minimally in lower abdomen), Normal Bowel Sounds , Soft. absent: Distended, Firm, Rebound - Extremities Exam Extremities exam: Positive for: normal inspection. Negative for: pedal edema, tenderness - Back Exam Back exam: NORMAL INSPECTION - Neurological Exam Neurological exam: Alert, CN II-XII Intact, Oriented x3 - Psychiatric Exam Psychiatric exam: Normal Affect, Normal Mood - Skin Skin Exam: Intact, Normal Color, Warm Results - Vital Signs Recent Vital Signs: Last Vital Signs Temp 98.3 F 01/03/18 16:02 Pulse 89 01/03/18 16:02 Resp 16 01/03/18 16:02 BP 132/81 01/03/18 15:31 Pulse Ox 98 01/03/18 15:31 - Labs Result Diagrams: 01/03/18 11:45 01/03/18 11:45 Assessment & Plan - Assessment and Plan (Free Text) Assessment: Patient is a 77 year old female with a past medical history significant for diverticular disease, hypertension, diabetes, and anemia who presents to [facility] with complaints of abominal pain associated with fevers and chills after colonoscopy performed on 01/01/18. Plan: Abdominal pain secondary to sigmoid perforation s/p colonoscopy -CT abdomen/pelvis with contrast reveals perforation of the sigmoid colon with multiple pockets of free air with air seen in right pericolic gutter and extending into the right inguinal region. -General Surgery consulted; surgical management -Morphine PRN -Zofran PRN -Lactated Ringers@125 Leukocytosis -Flagyl and Ciprofloxacin started -Infectious disease consulted Non insulin dependent diabetes mellitus -Insulin sliding scale-low -fingerstick q6h -Continue to monitor Hypertension -Hydralazine PRN -Continue to monitor DVT/GI prophylaxis: SCDs/Protonix <Rafael Hernandez - Last Filed: 01/04/18 12:52> Results - Vital Signs Recent Vital Signs: Last Vital Signs Temp 99 F 01/04/18 12:00 Pulse 70 01/04/18 12:00 Resp 20 01/04/18 12:00 BP 106/60 01/04/18 12:00 Pulse Ox 92 L 01/04/18 12:00 - Labs Result Diagrams: 01/04/18 07:00 01/04/18 07:00 Labs: Laboratory Results - last 24 hr 01/03/18 01/04/18 01/04/18 21:43 07:00 07:00 WBC 8.2 D RBC 3.72 Hgb 9.3 L Hct 29.8 L MCV 80.1 MCH 25.0 MCHC 31.2 RDW 16.9 H Plt Count 219 MPV 9.4 Gran % 65.7 Lymph % (Auto) 18.1 L [place] % (Auto) 10.8 H Eos % (Auto) 5.2 H Baso % (Auto) 0.2 Gran # 5.39 Lymph # (Auto) 1.5 [place] # (Auto) 0.9 H Eos # (Auto) 0.4 Baso # (Auto) 0.02 Sodium 139 Potassium 3.8 Chloride 106 Carbon Dioxide 25 Anion Gap 12 BUN 11 Creatinine 0.7 Est GFR ( Amer) > 60 Est GFR (Non-Af Amer) > 60 POC Glucose (mg/dL) 108 Random Glucose 98 Calcium 8.6 Total Bilirubin 0.4 AST 18 ALT 21 Alkaline Phosphatase 66 Total Protein 6.3 Albumin 3.1 Globulin 3.3 Albumin/Globulin Ratio 0.9 L 01/04/18 01/04/18 07:55 11:07 WBC RBC Hgb Hct MCV MCH MCHC RDW Plt Count MPV Gran % Lymph % (Auto) [place] % (Auto) Eos % (Auto) Baso % (Auto) Gran # Lymph # (Auto) [place] # (Auto) Eos # (Auto) Baso # (Auto) Sodium Potassium Chloride Carbon Dioxide Anion Gap BUN Creatinine Est GFR ( Amer) Est GFR (Non-Af Amer) POC Glucose (mg/dL) 111 H 103 Random Glucose Calcium Total Bilirubin AST ALT Alkaline Phosphatase Total Protein Albumin Globulin Albumin/Globulin Ratio Attending/Attestation - Attestation I have personally seen and examined this patient.: Yes I have fully participated in the care of the patient.: Yes I have reviewed all pertinent clinical information: Yes Notes (Text): 01/04/18 12:50 Patient was seen and examined with medical biller. Agreed with assessment and plan. 77 year old female with a past medical history significant for diverticular disease, hypertension, diabetes, and anemia who presents to [facility] with complaints of abominal pain associated with fevers and chills after colonoscopy performed on 01/01/18., CT abdomen/pelvis with contrast reveals perforation of the sigmoid colon with multiple pockets of free air with air seen in right pericolic gutter and extending into the right inguinal region.Patient has been evaluated by Surgery team, no plan for surgery at this time.We will monitor closely.Continue NPO, IV fluid and IV antibiotics.We will monitor blood sugars, Management plan was discussed in detail with patient and family.. Education was provided.
--- NOTE | 2018-01-03 18:09 | CP.PCM.CON ---
History of Present Illness - History of Present Illness History of Present Illness: Infectious Disease Consultation: January 03, 2018 77 yo female who had colonoscopy done by Dr. Antonio of GI affliated with [facility] for ongoing anemia. The patient began having abdominal pain after procedure was done that was worsening. Abdominal pain worsened and she was sent to the hospital by her son (via phone call) once she told her son that she couldn't move. CT scan showing free air and signs of perforation at the sigmoid colon. Dr. Hartman of surgery is involved in the patient's care and has reviewed the films. At this point in time, medical management of the perforation. Started on Cipro and Flagyl. The patient also had a three month stay in [facility] returning in November 2017. The patient states the pain in less in the abdominal but still present. PMHx: DM, HTN, Hernia, Diverticulosis. PSHx: Bilateral knee arthroplasties, Hysterectomy (total), Hernia repair Allergies: NKDA Social Hx: No tobacco, EtOH, or illicit drug use Active Medications Acetaminophen (Tylenol 325mg Tab) 650 mg PO Q4 PRN PRN Reason: Fever >100.4 F Famotidine (Pepcid) 20 mg IVP DAILY [facility] Heparin Sodium (Porcine) (Heparin) 5,000 units SC Q12 [facility] PRN Reason: Protocol Lactated Ringer's (Lactated Ringer's) 1,000 mls @ 125 mls/hr IV .Q8H [facility] Last Admin: 01/03/18 16:54 Dose: 125 mls/hr Ciprofloxacin (Cipro 400mg/200ml Dsw) 400 mg in 200 mls @ 133.3 mls/hr IVPB Q12 [facility] PRN Reason: Protocol Stop: 01/04/18 11:31 Metronidazole (Flagyl) 500 mg in 100 mls @ 100 mls/hr IVPB Q8 [facility] PRN Reason: Protocol Insulin Human Regular (Humulin R Low) 0 units SC ACHS [facility] PRN Reason: Protocol Morphine Sulfate (Morphine) 4 mg IVP Q4 PRN PRN Reason: Pain, moderate (4-7) Morphine Sulfate (Morphine) 6 mg IVP Q4 PRN PRN Reason: Pain, severe (8-10) Ondansetron HCl (Zofran Inj) 4 mg IVP Q4 PRN PRN Reason: Nausea/Vomiting Pantoprazole Sodium (Protonix Inj) 40 mg IVP DAILY [facility] Family Hx: none given ROS: Chills, Fevers, Headaches, Night sweats, Abdominal Pain No chest pain, melena, hematuria, hematemesis, hematochezia, depression, anxiety , diarrhea, vision loss, hearing loss, loss of consciousness. Past Patient History - Infectious Disease Hx of Infectious Diseases: None - Past Social History Smoking Status: Never Smoked - CARDIAC Hx Pacemaker: No - NEUROLOGICAL Hx Paralysis: No - ENDOCRINE/METABOLIC Hx Diabetes Mellitus Type 2: Yes - HEMATOLOGICAL/ONCOLOGICAL Hx Blood Transfusions: No - MUSCULOSKELETAL/RHEUMATOLOGICAL Hx Musculoskeletal Disorders: Yes - PSYCHIATRIC Hx Physical Abuse: No Hx Substance Use: No - SURGICAL HISTORY Hx Hysterectomy: Yes Hx Orthopedic Surgery: Yes (Sumanth knee surgery) Other/Comment: Colonoscopy/Endoscopy - ANESTHESIA Hx Anesthesia: Yes Hx Anesthesia Reactions: No Hx Malignant Hyperthermia: No Meds Allergies/Adverse Reactions: Allergies Allergy/AdvReac Type Severity Reaction Status Date / Time No Known Allergies Allergy Verified 05/20/16 14:28 - Medications Medications: Current Medications Acetaminophen (Tylenol 325mg Tab) 650 mg PO Q4 PRN PRN Reason: Fever >100.4 F Famotidine (Pepcid) 20 mg IVP DAILY [facility] Heparin Sodium (Porcine) (Heparin) 5,000 units SC Q12 [facility] PRN Reason: Protocol Lactated Ringer's (Lactated Ringer's) 1,000 mls @ 125 mls/hr IV .Q8H [facility] Last Admin: 01/03/18 16:54 Dose: 125 mls/hr Ciprofloxacin (Cipro 400mg/200ml Dsw) 400 mg in 200 mls @ 133.3 mls/hr IVPB Q12 [facility] PRN Reason: Protocol Stop: 01/04/18 11:31 Metronidazole (Flagyl) 500 mg in 100 mls @ 100 mls/hr IVPB Q8 [facility] PRN Reason: Protocol Insulin Human Regular (Humulin R Low) 0 units SC ACHS [facility] PRN Reason: Protocol Morphine Sulfate (Morphine) 4 mg IVP Q4 PRN PRN Reason: Pain, moderate (4-7) Morphine Sulfate (Morphine) 6 mg IVP Q4 PRN PRN Reason: Pain, severe (8-10) Ondansetron HCl (Zofran Inj) 4 mg IVP Q4 PRN PRN Reason: Nausea/Vomiting Pantoprazole Sodium (Protonix Inj) 40 mg IVP DAILY [facility] Physical Exam - Constitutional Appears: Non-toxic, No Acute Distress - Head Exam Head Exam: ATRAUMATIC, NORMOCEPHALIC - Eye Exam Eye Exam: EOMI, PERRL Pupil Exam: NORMAL ACCOMODATION, PERRL - ENT Exam ENT Exam: Mucous Membranes Moist, Normal External Ear Exam, TM's Normal Bilaterally - Neck Exam Neck exam: Positive for: Full Rom, Normal Inspection - Respiratory Exam Respiratory Exam: Clear to Auscultation Bilateral, NORMAL BREATHING PATTERN. absent: Rales, Rhonchi, Wheezes - Cardiovascular Exam Cardiovascular Exam: REGULAR RHYTHM, RRR, +S1, +S2 - GI/Abdominal Exam GI & Abdominal Exam: Distended, Hypoactive Bowel Sounds, Soft, Tenderness Additional comments: Diffuse tenderness up to 10 out of 10. - Extremities Exam Extremities exam: Positive for: full ROM, normal inspection - Neurological Exam Neurological exam: Alert, CN II-XII Intact, Oriented x3 - Psychiatric Exam Psychiatric exam: Normal Affect, Normal Mood - Skin Skin Exam: Intact, Normal Color Results - Vital Signs Recent Vital Signs: Last Vital Signs Temp 98.3 F 01/03/18 16:02 Pulse 89 01/03/18 16:02 Resp 16 01/03/18 16:02 BP 132/81 01/03/18 15:31 Pulse Ox 98 01/03/18 15:31 - Labs Result Diagrams: 01/03/18 11:45 01/03/18 11:45 Assessment & Plan - Assessment and Plan (Free Text) Assessment: 77 yo female with recent colonoscopy presenting with worsening abdominal pain. Imaging studies showing signs of perforation with free air around sigmoid colon. For conversative treatment with surgery at this time. Started on Cipro and Flagyl for antibiotic coverage. This combination is a good starting point. Monitor labs, patient's pain complaints, and fever trend. May need to consider change in antibiotics to Zosyn if any signs of worsening. [facility] Continue with Cipro and Flagyl for now. Case discussed with Internal Medicine team and Dr. Carlson as well as Surgical team and Dr. Hartman. Thank you for allowing me to participate in the care of the patient, we will follow with you.
[2018-01-03] MEDS: metroNIDAZOLE IV 500 mg/100 ml 500 MG/100 ML BAG IVPB SCH (21:01)
[2018-01-03] MEDS ORDERED: Ciprofloxacin 400mg/200ml D5W 400 MG/200 ML BAG IVPB SCH (22:00)
--- NOTE | 2018-01-03 22:19 | CARD ---
APPROVED REPORT EKG Measurement Heart [id number] <Conclusion> Sinus tachycardia Right bundle branch block Abnormal ECG
[2018-01-03] MEDS: Ciprofloxacin 400mg/200ml D5W 400 MG/200 ML BAG IVPB SCH (22:20)
[2018-01-03] MEDS ORDERED: Pneumococcal 23-Valent Vaccine IM ONE (23:18)
[2018-01-03] MEDS ORDERED: Influenza Vaccine 60 mcg/0.5 mL SYR (4YR UP) IM ONE (23:18)
[2018-01-04] MEDS ORDERED: Morphine 2 mg/ml ISec IVP PRN ×2 (01:05→04:05)
[2018-01-04] MEDS: Insulin Reg-LOW-Coverage SC SCH ×5 (03:57→22:30)
--- NOTE | 2018-01-04 04:00 | CP.PCM.PN ---
Subjective - Date & Time of Evaluation Date of Evaluation: 01/04/18 Time of Evaluation: 03:40 - Subjective Subjective: Patient seen and examined at bedside thsi AM. No adverse events overnight. Patient reports persistent pain that is mildly better than last night and well controlled on current pain regimen. Patient denies any nausea, vomiting, fevers , chills, or any other symptoms. Patient has urinated 3 times since admission to floor. Objective - Vital Signs/Intake and Output Vital Signs (last 24 hours): Temp Pulse Resp BP Pulse Ox 98.9 F 77 19 115/67 95 01/04/18 01:00 01/04/18 01:00 01/04/18 01:00 01/04/18 01:00 01/04/18 01:00 - Medications Medications: Current Medications Acetaminophen (Tylenol 325mg Tab) 650 mg PO Q4 PRN PRN Reason: Fever >100.4 F Famotidine (Pepcid) 20 mg IVP DAILY [facility] Heparin Sodium (Porcine) (Heparin) 5,000 units SC Q12 [facility] PRN Reason: Protocol Hydralazine HCl (Apresoline) 10 mg IVP Q6 PRN PRN Reason: Systolic Blood Pressure Lactated Ringer's (Lactated Ringer's) 1,000 mls @ 125 mls/hr IV .Q8H [facility] Last Admin: 01/03/18 20:03 Dose: 125 mls/hr Metronidazole (Flagyl) 500 mg in 100 mls @ 100 mls/hr IVPB Q8 [facility] PRN Reason: Protocol Last Admin: 01/03/18 21:01 Dose: 100 mls/hr Ciprofloxacin (Cipro 400mg/200ml Dsw) 400 mg in 200 mls @ 133.3 mls/hr IVPB Q12 [facility] PRN Reason: Protocol Last Admin: 01/03/18 22:20 Dose: 133.3 mls/hr Insulin Human Regular (Humulin R Low) 0 units SC ACHS [facility] PRN Reason: Protocol Morphine Sulfate (Morphine) 6 mg IVP Q4 PRN PRN Reason: Pain, severe (8-10) Morphine Sulfate (Morphine) 2 mg IVP Q4H PRN PRN Reason: Pain, moderate (4-7) Ondansetron HCl (Zofran Inj) 4 mg IVP Q4 PRN PRN Reason: Nausea/Vomiting Last Admin: 01/03/18 21:01 Dose: 4 mg - Labs Labs: PT 12.7 SECONDS (9.4-12.5) H 01/03/18 11:45 INR 1.11 (0.93-1.08) H 01/03/18 11:45 - Constitutional Appears: Non-toxic, No Acute Distress - Head Exam Head Exam: ATRAUMATIC, NORMOCEPHALIC - Eye Exam Eye Exam: Normal appearance. absent: Conjunctival injection, Scleral icterus - ENT Exam ENT Exam: Mucous Membranes Moist, Normal Oropharynx - Respiratory Exam Respiratory Exam: NORMAL BREATHING PATTERN. absent: Accessory Muscle Use, Respiratory Distress - Cardiovascular Exam Cardiovascular Exam: RRR - GI/Abdominal Exam GI & Abdominal Exam: Distended (mild), Soft, Tenderness (LLQ and suprapubis). absent: Guarding, Rigid, Rebound - Extremities Exam Extremities Exam: absent: Calf Tenderness, Pedal Edema, Tenderness - Neurological Exam Neurological Exam: Alert, Awake, Oriented x3 - Psychiatric Exam Psychiatric exam: Normal Affect, Normal Mood - Skin Skin Exam: Dry, Intact, Normal Color, Warm Assessment and Plan - Assessment and Plan (Free Text) Assessment: 77 year old female with sepsis d/t iatrogenic sigmoid colon perforation Plan: -Continue conservative management--surgical intervention not indicated at this point -Strict I/O -Follow up ID recs: Continue Ciprofloxacin and Flagyl -LR @ 125 -DVT Prophylaxis -Morphine 2mg for moderate, 4mg for severe pain -Zofran PRN -monitor vitals q2 and response to pain meds -serial abdominal series -NPO -trend CBC/CMP Further Recs per Dr. Devan Lord, PGY2
[2018-01-04] MEDS: metroNIDAZOLE IV 500 mg/100 ml 500 MG/100 ML BAG IVPB SCH ×3 (06:43→21:40)
[2018-01-04 07:45] LABS: BASO # 0.02 K/mm3 (0.0-2.0); BASO % 0.2 % (0.0-3.0); EOS # 0.4 (0.0-0.7); EOS % 5.2 % (1.5-5.0); GRAN # 5.39 (1.4-6.5); GRAN % 65.7 % (50.0-68.0); HEMOGLOBIN 9.3 g/dL (12.0-16.0); LYMPH # 1.5 (1.2-3.4); LYMPH % 18.1 % (22.0-35.0); MEAN CELL VOLUME 80.1 fl (80.0-105.0); MEAN CORPUSCULAR HGB CONC 31.2 g/dl (31.0-37.0); MEAN PLATELET VOLUME 9.4 fl (7.0-11.0); MONO # 0.9 (0.1-0.6); MONO % 10.8 % (1.0-6.0); RBC 3.72 10^6/uL (3.5-6.1); RED CELL DISTRIBUTION WIDTH 16.9 % (11.5-14.5); WHITE BLOOD COUNT 8.2 10^3/ul (4.5-11.0)
[2018-01-04 08:31] LABS: ALB/GLOB RATIO 0.9 (1.1-1.8); ALBUMIN 3.1 g/dL (3.0-4.8); ALT/SGPT 21 U/L (7-56); AST/SGOT 18 U/L (14-36); BLOOD UREA NITROGEN 11 mg/dL (7-21); CALCIUM 8.6 mg/dL (8.4-10.5); GFR AFRICAN-AMERICAN > 60; GFR NON-AFRICAN AMERICAN > 60
[2018-01-04] MEDS: Lactated Ringer's 1,000 ML IV SCH ×3 (08:44→18:38)
--- NOTE | 2018-01-04 09:38 | CP.PCM.PN ---
<Rhiannon Maguire - Last Filed: 01/04/18 09:31> Subjective - Date & Time of Evaluation Date of Evaluation: 01/04/18 Time of Evaluation: 09:31 - Subjective Subjective: Rhiannon Maguire, PGY1, Medicine Progress Note for Dr Hernandez: Patient seen and examined at bedside. No acute events overnight. Pt reports mild lower abdominal pain. Denies passing flatus/BM, appetite, nausea, vomiting , fever, chills, urinary symptoms. Objective - Vital Signs/Intake and Output Vital Signs (last 24 hours): Temp Pulse Resp BP Pulse Ox 98.0 F 67 18 106/55 L 99 01/04/18 06:00 01/04/18 06:00 01/04/18 06:00 01/04/18 06:00 01/04/18 06:00 Intake and Output: 01/04/18 01/04/18 06:59 18:59 Intake Total 1250 Output Total 250 150 Balance 1000 -150 - Medications Medications: Current Medications Acetaminophen (Tylenol 325mg Tab) 650 mg PO Q4 PRN PRN Reason: Fever >100.4 F Famotidine (Pepcid) 20 mg IVP DAILY [facility] Heparin Sodium (Porcine) (Heparin) 5,000 units SC Q12 [facility] PRN Reason: Protocol Hydralazine HCl (Apresoline) 10 mg IVP Q6 PRN PRN Reason: Systolic Blood Pressure Lactated Ringer's (Lactated Ringer's) 1,000 mls @ 125 mls/hr IV .Q8H [facility] Last Admin: 01/04/18 08:44 Dose: 125 mls/hr Metronidazole (Flagyl) 500 mg in 100 mls @ 100 mls/hr IVPB Q8 [facility] PRN Reason: Protocol Last Admin: 01/04/18 06:43 Dose: 100 mls/hr Ciprofloxacin (Cipro 400mg/200ml Dsw) 400 mg in 200 mls @ 133.3 mls/hr IVPB Q12 [facility] PRN Reason: Protocol Last Admin: 01/03/18 22:20 Dose: 133.3 mls/hr Insulin Human Regular (Humulin R Low) 0 units SC ACHS [facility] PRN Reason: Protocol Last Admin: 01/04/18 08:27 Dose: Not Given Morphine Sulfate (Morphine) 2 mg IVP Q4H PRN PRN Reason: Pain, moderate (4-7) Morphine Sulfate (Morphine) 4 mg IVP Q4 PRN PRN Reason: Pain, severe (8-10) Ondansetron HCl (Zofran Inj) 4 mg IVP Q4 PRN PRN Reason: Nausea/Vomiting Last Admin: 01/03/18 21:01 Dose: 4 mg - Labs Labs: 01/04/18 07:00 01/04/18 07:00 PT 12.7 SECONDS (9.4-12.5) H 01/03/18 11:45 INR 1.11 (0.93-1.08) H 01/03/18 11:45 - Constitutional Appears: Non-toxic, No Acute Distress, Older Than Stated Age - Head Exam Head Exam: ATRAUMATIC, NORMOCEPHALIC - Eye Exam Eye Exam: EOMI, PERRL. absent: Conjunctival injection, Nystagmus, Scleral icterus Pupil Exam: NORMAL ACCOMODATION, PERRL. absent: Fixed, Irregular, Unequal - ENT Exam ENT Exam: Mucous Membranes Moist - Neck Exam Neck Exam: Full ROM - Respiratory Exam Respiratory Exam: Clear to Ausculation Bilateral, NORMAL BREATHING PATTERN. absent: Accessory Muscle Use, Chest Wall Tenderness, Rhonchi, Wheezes, Respiratory Distress, Stridor - Cardiovascular Exam Cardiovascular Exam: RRR, +S1, +S2. absent: Murmur - GI/Abdominal Exam GI & Abdominal Exam: Soft, Tenderness (lower abdominal area), Hypoactive Bowel Sounds. absent: Distended, Firm, Guarding, Rigid, Mass, Organomegaly, Rebound - Extremities Exam Extremities Exam: Normal Inspection. absent: Calf Tenderness, Pedal Edema - Back Exam Back Exam: NORMAL INSPECTION - Neurological Exam Neurological Exam: Alert, Awake, Oriented x3 - Psychiatric Exam Psychiatric exam: Normal Affect, Normal Mood - Skin Skin Exam: Dry, Normal Color, Warm Assessment and Plan - Assessment and Plan (Free Text) Assessment: 77 year old female with a past medical history significant for diverticular disease, hypertension, diabetes, and anemia, admitted for abdominal pain 2/2 sigmoid perforation (s/p recent colonoscopy): Abdominal pain: 2/2 sigmoid perforation s/p recent colonoscopy (01/01/18) -CT abdomen/pelvis with contrast reveals perforation of the sigmoid colon with multiple pockets of free air with air seen in right pericolic gutter and extending into the right inguinal region. -General Surgery consulted; surgical management -ID consulted. appreciate recs. -Morphine PRN -Zofran PRN -Lactated Ringers@125 -IV antibiotics: Cipro and Flagyl. -Remains afebrile, leukocytosis resolving -Cont to monitor Non insulin dependent diabetes mellitus -Insulin sliding scale-low -fingerstick q6h -Continue to monitor Hypertension -Remains normotensive -Hydralazine PRN -Continue to monitor DVT/GI prophylaxis: SCDs/Protonix Discussed with Dr Hernandez. <Rafael Hernandez - Last Filed: 01/04/18 13:03> Objective - Vital Signs/Intake and Output Vital Signs (last 24 hours): Temp Pulse Resp BP Pulse Ox 99 F 70 20 106/60 92 L 01/04/18 12:00 01/04/18 12:00 01/04/18 12:00 01/04/18 12:00 01/04/18 12:00 Intake and Output: 01/04/18 01/04/18 06:59 18:59 Intake Total 1250 Output Total 250 150 Balance 1000 -150 - Medications Medications: Current Medications Acetaminophen (Tylenol 325mg Tab) 650 mg PO Q4 PRN PRN Reason: Fever >100.4 F Famotidine (Pepcid) 20 mg IVP DAILY [facility] Last Admin: 01/04/18 10:22 Dose: 20 mg Heparin Sodium (Porcine) (Heparin) 5,000 units SC Q12 [facility] PRN Reason: Protocol Last Admin: 01/04/18 10:22 Dose: 5,000 units Hydralazine HCl (Apresoline) 10 mg IVP Q6 PRN PRN Reason: Systolic Blood Pressure Lactated Ringer's (Lactated Ringer's) 1,000 mls @ 125 mls/hr IV .Q8H [facility] Last Admin: 01/04/18 08:44 Dose: 125 mls/hr Metronidazole (Flagyl) 500 mg in 100 mls @ 100 mls/hr IVPB Q8 [facility] PRN Reason: Protocol Last Admin: 01/04/18 06:43 Dose: 100 mls/hr Ciprofloxacin (Cipro 400mg/200ml Dsw) 400 mg in 200 mls @ 133.3 mls/hr IVPB Q12 [facility] PRN Reason: Protocol Last Admin: 01/04/18 10:21 Dose: 133.3 mls/hr Insulin Human Regular (Humulin R Low) 0 units SC ACHS [facility] PRN Reason: Protocol Last Admin: 01/04/18 11:19 Dose: Not Given Morphine Sulfate (Morphine) 2 mg IVP Q4H PRN PRN Reason: Pain, moderate (4-7) Morphine Sulfate (Morphine) 4 mg IVP Q4 PRN PRN Reason: Pain, severe (8-10) Ondansetron HCl (Zofran Inj) 4 mg IVP Q4 PRN PRN Reason: Nausea/Vomiting Last Admin: 01/03/18 21:01 Dose: 4 mg - Labs Labs: 01/04/18 07:00 01/04/18 07:00 PT 12.7 SECONDS (9.4-12.5) H 01/03/18 11:45 INR 1.11 (0.93-1.08) H 01/03/18 11:45 Attending/Attestation - Attestation I have personally seen and examined this patient.: Yes I have fully participated in the care of the patient.: Yes I have reviewed all pertinent clinical information, including history, physical exam and plan: Yes Notes (Text): 01/04/18 12:57 Patient was seen and examined with medical affairs leader. Medical record note made by the resident after discussion with my direction and input after the patient was personally seen and examined by me. I have reviewed the chart and agree that the record accurately reflects by personal performance of the history, physical exam, data review, and medical decision-making. I have also personally directed the plan of care. Management plan was discussed in detail with patient. Education was provided.
[2018-01-04] MEDS: Ciprofloxacin 400mg/200ml D5W 400 MG/200 ML BAG IVPB SCH ×2 (10:21→22:45)
--- NOTE | 2018-01-04 15:59 | CP.PCM.PN ---
Subjective - Date & Time of Evaluation Date of Evaluation: 01/04/18 Time of Evaluation: 14:15 - Subjective Subjective: Infectious Disease Follow Up: January 04, 2018 77 yo female who had colonoscopy done by Dr. Antonio of GI affliated with [facility] for ongoing anemia. The patient began having abdominal pain after procedure was done that was worsening. Abdominal pain worsened and she was sent to the hospital by her son (via phone call) once she told her son that she couldn't move. CT scan showing free air and signs of perforation at the sigmoid colon. Dr. Hartman of surgery is involved in the patient's care and has reviewed the films. At this point in time, medical management of the perforation. Started on Cipro and Flagyl. The patient also had a three month stay in [facility] returning in November 2017. The patient states the pain in less in the abdominal but still present. No new issues overnight. On Cipro and Flagyl. Continue to monitor closely. Objective - Vital Signs/Intake and Output Vital Signs (last 24 hours): Temp Pulse Resp BP Pulse Ox 99 F 70 20 106/60 92 L 01/04/18 12:00 01/04/18 12:00 01/04/18 12:00 01/04/18 12:00 01/04/18 12:00 Intake and Output: 01/04/18 01/04/18 06:59 18:59 Intake Total 1250 Output Total 250 750 Balance 1000 -750 - Medications Medications: Current Medications Acetaminophen (Tylenol 325mg Tab) 650 mg PO Q4 PRN PRN Reason: Fever >100.4 F Famotidine (Pepcid) 20 mg IVP DAILY [facility] Last Admin: 01/04/18 10:22 Dose: 20 mg Heparin Sodium (Porcine) (Heparin) 5,000 units SC Q12 [facility] PRN Reason: Protocol Last Admin: 01/04/18 10:22 Dose: 5,000 units Hydralazine HCl (Apresoline) 10 mg IVP Q6 PRN PRN Reason: Systolic Blood Pressure Lactated Ringer's (Lactated Ringer's) 1,000 mls @ 125 mls/hr IV .Q8H [facility] Last Admin: 01/04/18 08:44 Dose: 125 mls/hr Metronidazole (Flagyl) 500 mg in 100 mls @ 100 mls/hr IVPB Q8 [facility] PRN Reason: Protocol Last Admin: 01/04/18 13:38 Dose: 100 mls/hr Ciprofloxacin (Cipro 400mg/200ml Dsw) 400 mg in 200 mls @ 133.3 mls/hr IVPB Q12 [facility] PRN Reason: Protocol Last Admin: 01/04/18 10:21 Dose: 133.3 mls/hr Insulin Human Regular (Humulin R Low) 0 units SC ACHS [facility] PRN Reason: Protocol Last Admin: 01/04/18 11:19 Dose: Not Given Morphine Sulfate (Morphine) 2 mg IVP Q4H PRN PRN Reason: Pain, moderate (4-7) Morphine Sulfate (Morphine) 4 mg IVP Q4 PRN PRN Reason: Pain, severe (8-10) Ondansetron HCl (Zofran Inj) 4 mg IVP Q4 PRN PRN Reason: Nausea/Vomiting Last Admin: 01/03/18 21:01 Dose: 4 mg - Labs Labs: 01/04/18 07:00 01/04/18 07:00 PT 12.7 SECONDS (9.4-12.5) H 01/03/18 11:45 INR 1.11 (0.93-1.08) H 01/03/18 11:45 - Constitutional Appears: Non-toxic, No Acute Distress - Head Exam Head Exam: ATRAUMATIC, NORMOCEPHALIC - Eye Exam Eye Exam: EOMI, PERRL Pupil Exam: NORMAL ACCOMODATION, PERRL - ENT Exam ENT Exam: Mucous Membranes Moist, Normal External Ear Exam, TM's Normal Bilaterally - Neck Exam Neck Exam: Full ROM, Normal Inspection - Respiratory Exam Respiratory Exam: Clear to Ausculation Bilateral, NORMAL BREATHING PATTERN. absent: Rales, Rhonchi, Wheezes - Cardiovascular Exam Cardiovascular Exam: REGULAR RHYTHM, RRR, +S1, +S2 - GI/Abdominal Exam GI & Abdominal Exam: Soft, Tenderness, Normal Bowel Sounds. absent: Distended Additional comments: Diffuse tenderness 8-10 out of 10. - Extremities Exam Extremities Exam: Full ROM, Normal Inspection - Neurological Exam Neurological Exam: Alert, Awake, CN II-XII Intact, Oriented x3 - Psychiatric Exam Psychiatric exam: Normal Affect, Normal Mood - Skin Skin Exam: Intact, Normal Color Assessment and Plan - Assessment and Plan (Free Text) Assessment: 77 yo female with recent colonoscopy presenting with worsening abdominal pain. Imaging studies showing signs of perforation with free air around sigmoid colon. For conversative treatment with surgery at this time. Started on Cipro and Flagyl for antibiotic coverage. This combination is a good starting point. Monitor labs, patient's pain complaints, and fever trend. May need to consider change in antibiotics to Zosyn if any signs of worsening. Noted recent travel to [facility]. Will continue with Cipro and Flagyl for now. Patient remains stable. Case discussed with Internal Medicine team and Dr. Carlson as well as Surgical team and Dr. Hartman. Thank you for allowing me to participate in the care of the patient, we will follow with you.
[2018-01-05] MEDS: Lactated Ringer's 1,000 ML IV SCH ×4 (04:48→21:10)
[2018-01-05] MEDS: metroNIDAZOLE IV 500 mg/100 ml 500 MG/100 ML BAG IVPB SCH ×3 (05:52→21:09)
[2018-01-05 07:23] LABS: BASO # 0.03 K/mm3 (0.0-2.0); BASO % 0.5 % (0.0-3.0); EOS # 0.6 (0.0-0.7); EOS % 9.6 % (1.5-5.0); GRAN # 3.73 (1.4-6.5); GRAN % 57.9 % (50.0-68.0); HEMOGLOBIN 9.7 g/dL (12.0-16.0); LYMPH # 1.4 (1.2-3.4); LYMPH % 21.4 % (22.0-35.0); MEAN CELL VOLUME 80.5 fl (80.0-105.0); MEAN CORPUSCULAR HEMOGLOBIN 24.6 pg (25.0-35.0); MEAN CORPUSCULAR HGB CONC 30.6 g/dl (31.0-37.0); MEAN PLATELET VOLUME 10.1 fl (7.0-11.0); MONO # 0.7 (0.1-0.6); MONO % 10.6 % (1.0-6.0); RBC 3.94 10^6/uL (3.5-6.1); RED CELL DISTRIBUTION WIDTH 16.8 % (11.5-14.5); WHITE BLOOD COUNT 6.4 10^3/ul (4.5-11.0)
[2018-01-05 07:40] LABS: ALBUMIN 3.3 g/dL (3.0-4.8); ALT/SGPT 29 U/L (7-56); AST/SGOT 22 U/L (14-36); BLOOD UREA NITROGEN 11 mg/dL (7-21); GFR AFRICAN-AMERICAN > 60; GFR NON-AFRICAN AMERICAN > 60
[2018-01-05] MEDS: Insulin Reg-LOW-Coverage SC SCH ×4 (08:08→21:18)
--- NOTE | 2018-01-05 09:24 | CP.PCM.PN ---
<Rhiannon Maguire - Last Filed: 01/05/18 09:58> Subjective - Date & Time of Evaluation Date of Evaluation: 01/05/18 Time of Evaluation: 09:24 - Subjective Subjective: Rhiannon Maguire, PGY1, Medicine Progress Note for Dr Hernandez: Patient seen and examined at bedside. No acute events overnight. Pt reports passing minimal flatus and small bowel movement. States that he abdominal pain is much better, primarily in LLQ. States that she is hungry. Denies nausea, vomiting, abd distention, fever, chills, urinary symptoms. Objective - Vital Signs/Intake and Output Vital Signs (last 24 hours): Temp Pulse Resp BP Pulse Ox 98 F 71 20 114/57 L 96 01/05/18 06:00 01/05/18 06:00 01/05/18 06:00 01/05/18 06:00 01/05/18 06:00 Intake and Output: 01/05/18 01/05/18 06:59 18:59 Intake Total 1400 Output Total 1300 Balance 100 - Medications Medications: Current Medications Acetaminophen (Tylenol 325mg Tab) 650 mg PO Q4 PRN PRN Reason: Fever >100.4 F Famotidine (Pepcid) 20 mg IVP DAILY [facility] Last Admin: 01/04/18 10:22 Dose: 20 mg Heparin Sodium (Porcine) (Heparin) 5,000 units SC Q12 [facility] PRN Reason: Protocol Last Admin: 01/04/18 21:45 Dose: Not Given Hydralazine HCl (Apresoline) 10 mg IVP Q6 PRN PRN Reason: Systolic Blood Pressure Lactated Ringer's (Lactated Ringer's) 1,000 mls @ 125 mls/hr IV .Q8H [facility] Last Admin: 01/05/18 05:51 Dose: 125 mls/hr Metronidazole (Flagyl) 500 mg in 100 mls @ 100 mls/hr IVPB Q8 [facility] PRN Reason: Protocol Last Admin: 01/05/18 05:52 Dose: 100 mls/hr Ciprofloxacin (Cipro 400mg/200ml Dsw) 400 mg in 200 mls @ 133.3 mls/hr IVPB Q12 [facility] PRN Reason: Protocol Last Admin: 01/04/18 22:45 Dose: 133.3 mls/hr Insulin Human Regular (Humulin R Low) 0 units SC ACHS [facility] PRN Reason: Protocol Last Admin: 01/05/18 08:08 Dose: Not Given Morphine Sulfate (Morphine) 2 mg IVP Q4H PRN PRN Reason: Pain, moderate (4-7) Morphine Sulfate (Morphine) 4 mg IVP Q4 PRN PRN Reason: Pain, severe (8-10) Ondansetron HCl (Zofran Inj) 4 mg IVP Q4 PRN PRN Reason: Nausea/Vomiting Last Admin: 01/04/18 21:40 Dose: 4 mg - Labs Labs: 01/05/18 07:00 01/05/18 07:00 PT 12.7 SECONDS (9.4-12.5) H 01/03/18 11:45 INR 1.11 (0.93-1.08) H 01/03/18 11:45 - Constitutional Appears: Non-toxic, No Acute Distress - Head Exam Head Exam: ATRAUMATIC, NORMOCEPHALIC - Eye Exam Eye Exam: EOMI, PERRL. absent: Conjunctival injection, Nystagmus, Scleral icterus Pupil Exam: NORMAL ACCOMODATION, PERRL. absent: Fixed, Irregular, Unequal - ENT Exam ENT Exam: Mucous Membranes Moist - Neck Exam Neck Exam: Full ROM - Respiratory Exam Respiratory Exam: Clear to Ausculation Bilateral, NORMAL BREATHING PATTERN. absent: Accessory Muscle Use, Decreased Breath Sounds, Rhonchi, Wheezes, Stridor - Cardiovascular Exam Cardiovascular Exam: RRR, +S1, +S2. absent: Murmur - GI/Abdominal Exam GI & Abdominal Exam: Soft, Tenderness (mild in LLQ), Normal Bowel Sounds. absent: Distended, Firm, Guarding, Rigid, Mass, Organomegaly, Rebound - Extremities Exam Extremities Exam: Normal Inspection. absent: Calf Tenderness, Pedal Edema - Back Exam Back Exam: NORMAL INSPECTION. absent: CVA tenderness (L), CVA tenderness (R) - Neurological Exam Neurological Exam: Alert, Awake, Oriented x3 - Psychiatric Exam Psychiatric exam: Normal Affect, Normal Mood - Skin Skin Exam: Dry, Normal Color, Warm Assessment and Plan - Assessment and Plan (Free Text) Assessment: 77 year old female with a past medical history significant for diverticular disease, hypertension, diabetes, and anemia, admitted for abdominal pain 2/2 sigmoid perforation (s/p recent colonoscopy). Pt doing well, started on CLD today: Abdominal pain: 2/2 sigmoid perforation s/p recent colonoscopy (01/01/18) -CT abdomen/pelvis with contrast reveals perforation of the sigmoid colon with multiple pockets of free air with air seen in right pericolic gutter and extending into the right inguinal region. -General Surgery consulted; surgical management -ID consulted. appreciate recs. -Morphine PRN -Zofran PRN -Lactated Ringers@125 -IV antibiotics: Cipro and Flagyl. -Remains afebrile, leukocytosis resolving -CLD per surgery -Cont to monitor Hx of Non insulin dependent diabetes mellitus -Insulin sliding scale-low -fingerstick q6h -Continue to monitor Hx of Hypertension -Remains normotensive -Hydralazine PRN -Continue to monitor DVT/GI prophylaxis: heparin sq/Protonix Discussed with Dr Hernandez. <Rafael Hernandez - Last Filed: 01/05/18 10:14> Objective - Vital Signs/Intake and Output Vital Signs (last 24 hours): Temp Pulse Resp BP Pulse Ox 98 F 71 20 114/57 L 96 01/05/18 06:00 01/05/18 06:00 01/05/18 06:00 01/05/18 06:00 01/05/18 06:00 Intake and Output: 01/05/18 01/05/18 06:59 18:59 Intake Total 1400 Output Total 1300 Balance 100 - Medications Medications: Current Medications Acetaminophen (Tylenol 325mg Tab) 650 mg PO Q4 PRN PRN Reason: Fever >100.4 F Famotidine (Pepcid) 20 mg IVP DAILY [facility] Last Admin: 01/05/18 09:43 Dose: 20 mg Heparin Sodium (Porcine) (Heparin) 5,000 units SC Q8 [facility] PRN Reason: Protocol Hydralazine HCl (Apresoline) 10 mg IVP Q6 PRN PRN Reason: Systolic Blood Pressure Metronidazole (Flagyl) 500 mg in 100 mls @ 100 mls/hr IVPB Q8 [facility] PRN Reason: Protocol Last Admin: 01/05/18 05:52 Dose: 100 mls/hr Ciprofloxacin (Cipro 400mg/200ml Dsw) 400 mg in 200 mls @ 133.3 mls/hr IVPB Q12 [facility] PRN Reason: Protocol Last Admin: 01/05/18 09:43 Dose: 133.3 mls/hr Lactated Ringer's (Lactated Ringer's) 1,000 mls @ 100 mls/hr IV .Q10H [facility] Last Admin: 01/05/18 09:44 Dose: 100 mls/hr Insulin Human Regular (Humulin R Low) 0 units SC ACHS [facility] PRN Reason: Protocol Last Admin: 01/05/18 08:08 Dose: Not Given Morphine Sulfate (Morphine) 2 mg IVP Q4H PRN PRN Reason: Pain, moderate (4-7) Morphine Sulfate (Morphine) 4 mg IVP Q4 PRN PRN Reason: Pain, severe (8-10) Ondansetron HCl (Zofran Inj) 4 mg IVP Q4 PRN PRN Reason: Nausea/Vomiting Last Admin: 01/04/18 21:40 Dose: 4 mg - Labs Labs: 01/05/18 07:00 01/05/18 07:00 PT 12.7 SECONDS (9.4-12.5) H 01/03/18 11:45 INR 1.11 (0.93-1.08) H 01/03/18 11:45 Attending/Attestation - Attestation I have personally seen and examined this patient.: Yes I have fully participated in the care of the patient.: Yes I have reviewed all pertinent clinical information, including history, physical exam and plan: Yes Notes (Text): 01/05/18 10:12 Medical record note made by the resident after discussion with my direction and input after the patient was personally seen and examined by me. I have reviewed the chart and agree that the record accurately reflects by personal performance of the history, physical exam, data review, and medical decision-making, in the course for the patient. I have also personally directed the plan of care. 77 yrs old female with Sigmoid Peroration after Colonoscopy, abdominal pain is better, WBC back to normal, has good Bowel sound and tenderness has improved. Patient has been started on liquid diet by surgery, we will continue monitoring. Management plan was discussed in detail with patient. Education was provided.
--- NOTE | 2018-01-05 09:35 | CP.PCM.PN ---
Subjective - Date & Time of Evaluation Date of Evaluation: 01/05/18 Time of Evaluation: 09:30 - Subjective Subjective: Surgery: Dr. Hartman Patient doing well. Pain improved. Patient reports minimal flatus and tiny bowel movement. No f/c/n/v. Discussed with patient importance of taking antibiotics and DVT ppx. Patient reports understanding. Objective - Vital Signs/Intake and Output Vital Signs (last 24 hours): Temp Pulse Resp BP Pulse Ox 98 F 71 20 114/57 L 96 01/05/18 06:00 01/05/18 06:00 01/05/18 06:00 01/05/18 06:00 01/05/18 06:00 Intake and Output: 01/05/18 01/05/18 06:59 18:59 Intake Total 1400 Output Total 1300 Balance 100 - Medications Medications: Current Medications Acetaminophen (Tylenol 325mg Tab) 650 mg PO Q4 PRN PRN Reason: Fever >100.4 F Famotidine (Pepcid) 20 mg IVP DAILY [facility] Last Admin: 01/04/18 10:22 Dose: 20 mg Heparin Sodium (Porcine) (Heparin) 5,000 units SC Q12 [facility] PRN Reason: Protocol Last Admin: 01/04/18 21:45 Dose: Not Given Hydralazine HCl (Apresoline) 10 mg IVP Q6 PRN PRN Reason: Systolic Blood Pressure Metronidazole (Flagyl) 500 mg in 100 mls @ 100 mls/hr IVPB Q8 [facility] PRN Reason: Protocol Last Admin: 01/05/18 05:52 Dose: 100 mls/hr Ciprofloxacin (Cipro 400mg/200ml Dsw) 400 mg in 200 mls @ 133.3 mls/hr IVPB Q12 [facility] PRN Reason: Protocol Last Admin: 01/04/18 22:45 Dose: 133.3 mls/hr Lactated Ringer's (Lactated Ringer's) 1,000 mls @ 100 mls/hr IV .Q10H [facility] Insulin Human Regular (Humulin R Low) 0 units SC ACHS [facility] PRN Reason: Protocol Last Admin: 01/05/18 08:08 Dose: Not Given Morphine Sulfate (Morphine) 2 mg IVP Q4H PRN PRN Reason: Pain, moderate (4-7) Morphine Sulfate (Morphine) 4 mg IVP Q4 PRN PRN Reason: Pain, severe (8-10) Ondansetron HCl (Zofran Inj) 4 mg IVP Q4 PRN PRN Reason: Nausea/Vomiting Last Admin: 01/04/18 21:40 Dose: 4 mg - Labs Labs: 01/05/18 07:00 01/05/18 07:00 PT 12.7 SECONDS (9.4-12.5) H 01/03/18 11:45 INR 1.11 (0.93-1.08) H 01/03/18 11:45 - Constitutional Appears: Non-toxic, No Acute Distress - Head Exam Head Exam: ATRAUMATIC, NORMOCEPHALIC - Eye Exam Eye Exam: EOMI, Normal appearance - ENT Exam ENT Exam: Mucous Membranes Moist - Respiratory Exam Respiratory Exam: NORMAL BREATHING PATTERN. absent: Respiratory Distress - Cardiovascular Exam Cardiovascular Exam: REGULAR RHYTHM. absent: Tachycardia - GI/Abdominal Exam GI & Abdominal Exam: Soft, Tenderness (suprapubic). absent: Guarding, Rigid, Rebound - Neurological Exam Neurological Exam: Alert, Awake - Psychiatric Exam Psychiatric exam: Normal Affect, Normal Mood - Skin Skin Exam: Dry, Normal Color, Warm Assessment and Plan - Assessment and Plan (Free Text) Assessment: 77 y/o female w/ sigmoid perforation following colonoscopy- status significantly improved Plan: -CLD today -ADAT -bowel function -OOB -IV abx continued -needs GI follow up -DVT ppx -pain control -vitals Q6 -decreased IVF -will likely need surgical follow up considering severity/extensive diverticular disease of colon -further recs per Dr. Devan Argueta PGY3
[2018-01-05] MEDS: Ciprofloxacin 400mg/200ml D5W 400 MG/200 ML BAG IVPB SCH ×2 (09:43→21:09)
--- NOTE | 2018-01-05 17:37 | CP.PCM.PN ---
Subjective - Date & Time of Evaluation Date of Evaluation: 01/05/18 Time of Evaluation: 16:00 - Subjective Subjective: Infectious Disease Follow Up: January 05, 2018 77 yo female who had colonoscopy done by Dr. Antonio of GI affliated with [facility] for ongoing anemia. The patient began having abdominal pain after procedure was done that was worsening. Abdominal pain worsened and she was sent to the hospital by her son (via phone call) once she told her son that she couldn't move. CT scan showing free air and signs of perforation at the sigmoid colon. Dr. Hartman of surgery is involved in the patient's care and has reviewed the films. At this point in time, medical management of the perforation. Started on Cipro and Flagyl. The patient also had a three month stay in [facility] returning in November 2017. The patient states the pain in less in the abdominal but still present. No new issues overnight. On Cipro and Flagyl. Continue to monitor closely. The patient is feeling better and ambulating the floors. No complaints at this time. Tolerated liquid diet. Having diet advanced. Objective - Vital Signs/Intake and Output Vital Signs (last 24 hours): Temp Pulse Resp BP Pulse Ox 98.4 F 68 18 102/45 L 95 01/05/18 13:22 01/05/18 17:18 01/05/18 13:22 01/05/18 13:22 01/05/18 13:22 Intake and Output: 01/05/18 01/05/18 06:59 18:59 Intake Total 1400 480 Output Total 1300 700 Balance 100 -220 - Medications Medications: Current Medications Acetaminophen (Tylenol 325mg Tab) 650 mg PO Q4 PRN PRN Reason: Fever >100.4 F Famotidine (Pepcid) 20 mg IVP DAILY [facility] Last Admin: 01/05/18 09:43 Dose: 20 mg Heparin Sodium (Porcine) (Heparin) 5,000 units SC Q8 [facility] PRN Reason: Protocol Last Admin: 01/05/18 13:27 Dose: Not Given Hydralazine HCl (Apresoline) 10 mg IVP Q6 PRN PRN Reason: Systolic Blood Pressure Metronidazole (Flagyl) 500 mg in 100 mls @ 100 mls/hr IVPB Q8 [facility] PRN Reason: Protocol Last Admin: 01/05/18 13:46 Dose: 100 mls/hr Ciprofloxacin (Cipro 400mg/200ml Dsw) 400 mg in 200 mls @ 133.3 mls/hr IVPB Q12 [facility] PRN Reason: Protocol Last Admin: 01/05/18 09:43 Dose: 133.3 mls/hr Lactated Ringer's (Lactated Ringer's) 1,000 mls @ 100 mls/hr IV .Q10H [facility] Last Admin: 01/05/18 09:44 Dose: 100 mls/hr Insulin Human Regular (Humulin R Low) 0 units SC ACHS [facility] PRN Reason: Protocol Last Admin: 01/05/18 16:36 Dose: Not Given Ondansetron HCl (Zofran Inj) 4 mg IVP Q4 PRN PRN Reason: Nausea/Vomiting Last Admin: 01/04/18 21:40 Dose: 4 mg - Labs Labs: 01/05/18 07:00 01/05/18 07:00 PT 12.7 SECONDS (9.4-12.5) H 01/03/18 11:45 INR 1.11 (0.93-1.08) H 01/03/18 11:45 - Constitutional Appears: Non-toxic, No Acute Distress - Head Exam Head Exam: ATRAUMATIC, NORMOCEPHALIC - Eye Exam Eye Exam: EOMI, PERRL Pupil Exam: NORMAL ACCOMODATION, PERRL - ENT Exam ENT Exam: Mucous Membranes Moist, Normal External Ear Exam, TM's Normal Bilaterally - Neck Exam Neck Exam: Full ROM, Normal Inspection - Respiratory Exam Respiratory Exam: Clear to Ausculation Bilateral, NORMAL BREATHING PATTERN. absent: Rales, Rhonchi, Wheezes - Cardiovascular Exam Cardiovascular Exam: REGULAR RHYTHM, RRR, +S1, +S2 - GI/Abdominal Exam GI & Abdominal Exam: Soft, Tenderness, Normal Bowel Sounds. absent: Distended Additional comments: Significant improvement in tenderness. 1-2 out of 10 now. - Extremities Exam Extremities Exam: Full ROM, Normal Inspection - Neurological Exam Neurological Exam: Alert, Awake, CN II-XII Intact, Oriented x3 - Psychiatric Exam Psychiatric exam: Normal Affect, Normal Mood - Skin Skin Exam: Intact, Normal Color Assessment and Plan - Assessment and Plan (Free Text) Assessment: 77 yo female with recent colonoscopy presenting with worsening abdominal pain. Imaging studies showing signs of perforation with free air around sigmoid colon. For conversative treatment with surgery at this time. Started on Cipro and Flagyl for antibiotic coverage. This combination is a good starting point. Monitor labs, patient's pain complaints, and fever trend. May need to consider change in antibiotics to Zosyn if any signs of worsening. Noted recent travel to [facility]. Continuing with Cipro and Flagyl. Patient remains stable. When ready for discharge, continue with oral Cipro and Flagyl for at least 14 days more. Case discussed with Internal Medicine team and Dr. Carlson as well as Surgical team and Dr. Hartman. Thank you for allowing me to participate in the care of the patient, we will follow with you.
[2018-01-06] MEDS: metroNIDAZOLE IV 500 mg/100 ml 500 MG/100 ML BAG IVPB SCH (05:14)
[2018-01-06 05:35] VITALS: O2SAT 97
[2018-01-06 07:11] LABS: BASO # 0.02 K/mm3 (0.0-2.0); BASO % 0.4 % (0.0-3.0); EOS # 0.6 (0.0-0.7); EOS % 12.4 % (1.5-5.0); GRAN # 2.54 (1.4-6.5); GRAN % 52.6 % (50.0-68.0); HEMOGLOBIN 9.5 g/dL (12.0-16.0); LYMPH # 1.2 (1.2-3.4); LYMPH % 24.2 % (22.0-35.0); MEAN CELL VOLUME 80.3 fl (80.0-105.0); MEAN CORPUSCULAR HGB CONC 31.1 g/dl (31.0-37.0); MEAN PLATELET VOLUME 9.5 fl (7.0-11.0); MONO # 0.5 (0.1-0.6); MONO % 10.4 % (1.0-6.0); RBC 3.8 10^6/uL (3.5-6.1); RED CELL DISTRIBUTION WIDTH 16.8 % (11.5-14.5); WHITE BLOOD COUNT 4.8 10^3/ul (4.5-11.0)
[2018-01-06 07:25] LABS: ALB/GLOB RATIO 0.9 (1.1-1.8); ALBUMIN 3.1 g/dL (3.0-4.8); ALT/SGPT 27 U/L (7-56); AST/SGOT 19 U/L (14-36); BLOOD UREA NITROGEN 8 mg/dL (7-21); GFR AFRICAN-AMERICAN > 60; GFR NON-AFRICAN AMERICAN > 60
[2018-01-06] MEDS: Insulin Reg-LOW-Coverage SC SCH ×2 (08:20→12:01)
[2018-01-06] MEDS: Ciprofloxacin 400mg/200ml D5W 400 MG/200 ML BAG IVPB SCH (09:07)
--- NOTE | 2018-01-06 09:09 | CP.PCM.PN ---
Subjective - Date & Time of Evaluation Date of Evaluation: 01/06/18 Time of Evaluation: 07:20 - Subjective Subjective: Patient seen and examined at bedside this AM. Patient was started on a heart healthy diet yesterday and had some left lower quadrant pain afterwards. Pain has improved this AM. Denies nausea and vomiting or any other symptoms. Objective - Vital Signs/Intake and Output Vital Signs (last 24 hours): Temp Pulse Resp BP Pulse Ox 98.2 F 64 18 122/58 L 97 01/06/18 05:34 01/06/18 05:34 01/06/18 05:34 01/06/18 05:34 01/06/18 05:34 Intake and Output: 01/06/18 01/06/18 06:59 18:59 Intake Total 1300 700 Output Total 1050 Balance 250 700 - Medications Medications: Current Medications Acetaminophen (Tylenol 325mg Tab) 650 mg PO Q4 PRN PRN Reason: Fever >100.4 F Famotidine (Pepcid) 20 mg IVP DAILY [facility] Last Admin: 01/05/18 09:43 Dose: 20 mg Heparin Sodium (Porcine) (Heparin) 5,000 units SC Q8 [facility] PRN Reason: Protocol Last Admin: 01/06/18 05:15 Dose: 5,000 units Hydralazine HCl (Apresoline) 10 mg IVP Q6 PRN PRN Reason: Systolic Blood Pressure Metronidazole (Flagyl) 500 mg in 100 mls @ 100 mls/hr IVPB Q8 [facility] PRN Reason: Protocol Last Admin: 01/06/18 05:14 Dose: 100 mls/hr Ciprofloxacin (Cipro 400mg/200ml Dsw) 400 mg in 200 mls @ 133.3 mls/hr IVPB Q12 [facility] PRN Reason: Protocol Last Admin: 01/05/18 21:09 Dose: 133.3 mls/hr Insulin Human Regular (Humulin R Low) 0 units SC ACHS [facility] PRN Reason: Protocol Last Admin: 01/06/18 08:20 Dose: Not Given Ondansetron HCl (Zofran Inj) 4 mg IVP Q4 PRN PRN Reason: Nausea/Vomiting Last Admin: 01/04/18 21:40 Dose: 4 mg - Labs Labs: 01/06/18 06:30 01/06/18 06:30 PT 12.7 SECONDS (9.4-12.5) H 01/03/18 11:45 INR 1.11 (0.93-1.08) H 01/03/18 11:45 - Constitutional Appears: Non-toxic, No Acute Distress - Head Exam Head Exam: ATRAUMATIC, NORMOCEPHALIC - Eye Exam Eye Exam: Normal appearance. absent: Conjunctival injection, Scleral icterus - ENT Exam ENT Exam: Mucous Membranes Moist, Normal Oropharynx - Respiratory Exam Respiratory Exam: NORMAL BREATHING PATTERN. absent: Accessory Muscle Use, Respiratory Distress - GI/Abdominal Exam GI & Abdominal Exam: Soft, Tenderness (moderate tenderness LLQ and suprapubis). absent: Distended, Guarding, Rigid, Rebound - Extremities Exam Extremities Exam: absent: Calf Tenderness, Pedal Edema, Tenderness - Neurological Exam Neurological Exam: Alert, Awake, Oriented x3 - Psychiatric Exam Psychiatric exam: Normal Affect, Normal Mood - Skin Skin Exam: Dry, Intact, Normal Color, Warm Assessment and Plan - Assessment and Plan (Free Text) Assessment: 77 y/o female with sigmoid perforation following colonoscopy clinically improving Plan: -continue HHD as tolerated -continue to monitor bowel function -OOB -IV abx continued per ID recs -needs GI follow up -DVT ppx -pain control -vitals Q6 -Patient is clear for discharge from a surgical standpoint. Patient should have a CT of abdomen and pelvis with PO contrast in 1 week and follow up with Dr. Hartman afterwards Discussed with Dr. Devan Lord, PGY2
--- NOTE | 2018-01-06 09:14 | CP.PCM.PN ---
Subjective - Date & Time of Evaluation Date of Evaluation: 01/06/18 Time of Evaluation: 09:11 Objective - Vital Signs/Intake and Output Vital Signs (last 24 hours): Temp Pulse Resp BP Pulse Ox 98.2 F 64 18 122/58 L 97 01/06/18 05:34 01/06/18 05:34 01/06/18 05:34 01/06/18 05:34 01/06/18 05:34 Intake and Output: 01/06/18 01/06/18 06:59 18:59 Intake Total 1300 700 Output Total 1050 Balance 250 700 - Medications Medications: Current Medications Acetaminophen (Tylenol 325mg Tab) 650 mg PO Q4 PRN PRN Reason: Fever >100.4 F Famotidine (Pepcid) 20 mg IVP DAILY [facility] Last Admin: 01/06/18 09:06 Dose: 20 mg Heparin Sodium (Porcine) (Heparin) 5,000 units SC Q8 [facility] PRN Reason: Protocol Last Admin: 01/06/18 05:15 Dose: 5,000 units Hydralazine HCl (Apresoline) 10 mg IVP Q6 PRN PRN Reason: Systolic Blood Pressure Metronidazole (Flagyl) 500 mg in 100 mls @ 100 mls/hr IVPB Q8 [facility] PRN Reason: Protocol Last Admin: 01/06/18 05:14 Dose: 100 mls/hr Ciprofloxacin (Cipro 400mg/200ml Dsw) 400 mg in 200 mls @ 133.3 mls/hr IVPB Q12 [facility] PRN Reason: Protocol Last Admin: 01/06/18 09:07 Dose: 133.3 mls/hr Insulin Human Regular (Humulin R Low) 0 units SC ACHS [facility] PRN Reason: Protocol Last Admin: 01/06/18 08:20 Dose: Not Given Ondansetron HCl (Zofran Inj) 4 mg IVP Q4 PRN PRN Reason: Nausea/Vomiting Last Admin: 01/04/18 21:40 Dose: 4 mg - Labs Labs: 01/06/18 06:30 01/06/18 06:30 PT 12.7 SECONDS (9.4-12.5) H 01/03/18 11:45 INR 1.11 (0.93-1.08) H 01/03/18 11:45 - Constitutional Appears: Non-toxic - Head Exam Head Exam: ATRAUMATIC, NORMAL INSPECTION, NORMOCEPHALIC - Eye Exam Eye Exam: EOMI, Normal appearance Pupil Exam: NORMAL ACCOMODATION, PERRL. absent: Irregular, Unequal - ENT Exam ENT Exam: Mucous Membranes Moist, Normal Exam - Neck Exam Neck Exam: Full ROM, Normal Inspection. absent: Lymphadenopathy, Tenderness, Thyromegaly - Respiratory Exam Respiratory Exam: NORMAL BREATHING PATTERN. absent: Accessory Muscle Use, Decreased Breath Sounds, Respiratory Distress - Cardiovascular Exam Cardiovascular Exam: REGULAR RHYTHM, +S1, +S2 - GI/Abdominal Exam GI & Abdominal Exam: Soft, Tenderness (slight tenderness in right lower quadrant to deep palpation), Normal Bowel Sounds. absent: Distended, Rigid, Diminished Bowel Sounds, Hyperactive Bowel Sounds, Hypoactive Bowel Sounds, Pulsatile Mass - Extremities Exam Extremities Exam: Full ROM, Normal Inspection. absent: Pedal Edema - Back Exam Back Exam: Full ROM, NORMAL INSPECTION - Neurological Exam Neurological Exam: Alert, Awake, CN II-XII Intact, Oriented x3 - Skin Skin Exam: Dry, Intact, Normal Color, Warm
--- NOTE | 2018-01-06 10:58 | CP.PCM.DIS ---
<Gabby Schultz - Last Filed: 01/06/18 11:14> Provider - Provider Date of Admission: 01/03/18 16:21 Attending physician: Rafael Hernandez MD Primary care physician: Isak Ervin APN Consults: Dr. Michael Hartman Time Spent in preparation of Discharge (in minutes): 35 Hospital Course - Lab Results Lab Results: Most Recent Lab Values WBC 4.8 10^3/ul (4.5-11.0) D 01/06/18 06:30 RBC 3.80 10^6/uL (3.5-6.1) 01/06/18 06:30 Hgb 9.5 g/dL (12.0-16.0) L 01/06/18 06:30 Hct 30.5 % (36.0-48.0) L 01/06/18 06:30 MCV 80.3 fl (80.0-105.0) 01/06/18 06:30 MCH 25.0 pg (25.0-35.0) 01/06/18 06:30 MCHC 31.1 g/dl (31.0-37.0) 01/06/18 06:30 RDW 16.8 % (11.5-14.5) H 01/06/18 06:30 Plt Count 253 10^3/uL (120.0-450.0) 01/06/18 06:30 MPV 9.5 fl (7.0-11.0) 01/06/18 06:30 Gran % 52.6 % (50.0-68.0) 01/06/18 06:30 Lymph % (Auto) 24.2 % (22.0-35.0) 01/06/18 06:30 [place] % (Auto) 10.4 % (1.0-6.0) H 01/06/18 06:30 Eos % (Auto) 12.4 % (1.5-5.0) H 01/06/18 06:30 Baso % (Auto) 0.4 % (0.0-3.0) 01/06/18 06:30 Gran # 2.54 (1.4-6.5) 01/06/18 06:30 Lymph # (Auto) 1.2 (1.2-3.4) 01/06/18 06:30 [place] # (Auto) 0.5 (0.1-0.6) 01/06/18 06:30 Eos # (Auto) 0.6 (0.0-0.7) 01/06/18 06:30 Baso # (Auto) 0.02 K/mm3 (0.0-2.0) 01/06/18 06:30 PT 12.7 SECONDS (9.4-12.5) H 01/03/18 11:45 INR 1.11 (0.93-1.08) H 01/03/18 11:45 Sodium 142 mmol/L (132-148) 01/06/18 06:30 Potassium 3.8 mmol/L (3.6-5.0) 01/06/18 06:30 Chloride 106 mmol/L (98-107) 01/06/18 06:30 Carbon Dioxide 25 mmol/L (21-33) 01/06/18 06:30 Anion Gap 14 (10-20) 01/06/18 06:30 BUN 8 mg/dL (7-21) 01/06/18 06:30 Creatinine 0.7 mg/dl (0.7-1.2) 01/06/18 06:30 Est GFR ( Amer) > 60 01/06/18 06:30 Est GFR (Non-Af Amer) > 60 01/06/18 06:30 POC Glucose (mg/dL) 104 mg/dL (65-110) 01/05/18 21:04 Random Glucose 110 mg/dL (70-110) 01/06/18 06:30 Calcium 9.0 mg/dL (8.4-10.5) 01/06/18 06:30 Phosphorus 3.7 mg/dL (2.5-4.5) 01/05/18 07:00 Magnesium 2.0 mg/dL (1.7-2.2) 01/05/18 07:00 Total Bilirubin 0.5 mg/dL (0.2-1.3) 01/06/18 06:30 AST 19 U/L (14-36) 01/06/18 06:30 ALT 27 U/L (7-56) 01/06/18 06:30 Alkaline Phosphatase 61 U/L (38-126) 01/06/18 06:30 Total Protein 6.3 g/dL (5.8-8.3) 01/06/18 06:30 Albumin 3.1 g/dL (3.0-4.8) 01/06/18 06:30 Globulin 3.3 gm/dL 01/06/18 06:30 Albumin/Globulin Ratio 0.9 (1.1-1.8) L 01/06/18 06:30 Urine Color Yellow (YELLOW) 01/03/18 15:35 Urine Appearance Clear (CLEAR) 01/03/18 15:35 Urine pH 6.0 (4.7-8.0) 01/03/18 15:35 Ur Specific [place] <= 1.005 (1.005-1.035) 01/03/18 15:35 Urine Protein Negative mg/dL (<30 mg/dL) 01/03/18 15:35 Urine Glucose (UA) Negative mg/dL (NEGATIVE) 01/03/18 15:35 Urine Ketones Negative mg/dL (NEGATIVE) 01/03/18 15:35 Urine Blood Trace-intact (NEGATIVE) H 01/03/18 15:35 Urine Nitrate Negative (NEGATIVE) 01/03/18 15:35 Urine Bilirubin Negative (NEGATIVE) 01/03/18 15:35 Urine Urobilinogen 0.2 E.U./dL (<1 E.U./dL) 01/03/18 15:35 Ur Leukocyte Esterase Negative Sak[place]/uL (NEGATIVE) 01/03/18 15:35 Urine RBC 0 - 2 /hpf (0-2) 01/03/18 15:35 Urine WBC 1 - 3 /hpf (0-6) 01/03/18 15:35 Ur Epithelial Cells 1 - 3 /hpf (0-5) 01/03/18 15:35 Urine Bacteria Few (NEG) 01/03/18 15:35 Blood Type O POSITIVE 01/03/18 14:00 Blood Type Confirm O POSITIVE 01/03/18 14:40 Antibody Screen Negative 01/03/18 14:00 BBK History Checked No verified bt 01/03/18 14:00 - Hospital Course Hospital Course: Patient is a 77 year old female with a past medical history significant for divertilosis, hypertension, diabetes, and anemia who [place] [facility] [place] of abominal pain associated with fevers and chills after [place] [facility] [place] was done to evaluate anemia. She relays that right after the procedure is when she began feeling the sharp bilateral lower abdominal pain rating it a 10/10. Patient states the pain was localized and non radiating. Pain was exacerbated with laying down, and relieved at times with turnnig from side to side or sitting in an upright position. Patient endorses the ability to pass gas, make bowel movements. Denies vomiting despite efforts to induce vomiting, denies chest pain, shortness of breath, diarrhea, cough. Upon being admitted patient states she was very nauseous and complained of a headache, which have been relieved with the antiemetics and pain medication given while in the emergency department. To note, patient recently has returned from a two month stay in [facility]. When patient returned she experienced bouts of diarrhea as well as the flu. Patient had CT abdomen and pelvis showing contained air, sigmoid colon perforation. Infectious disease Dr. Rodriguez was consulted. Patient was placed on cipro and flagyl and monitored. Dr. Hartman (Surgery) consulted. No surgical interventions at this time. Diet was advanced from clears to soft and then to heart healthy diet. patient had three episodes of soft stool with the last one at 22:00 01/05/18. Patient states her abdominal pain is gone and hasn't asked for pain medication. Patient was cleared by surgery team to follow up in one week with a Ct scan of abdomen and pelvis and to follow up with Dr. Hartman in one week. Patient was told to hold losartan and hold metformin, but check blood pressure daily and blood sugar levels regularly. To restart losartan if blood pressure becomes elevated >140/80. To restart metformin if blood sugar >130 and take as directed. Patient is to follow up with primary care doctor in one week for adjustment in medications if necessary. Continuing with Cipro and Flagyl for 10 more days Cipro 500mg PO BID #20 tabs, Flagyl 500mg TID #30 tabs - Date & Time of H&P Date of H&P: 01/06/18 Time of H&P: 11:15 Discharge Exam - Head Exam Head Exam: ATRAUMATIC, NORMAL INSPECTION, NORMOCEPHALIC - Eye Exam Eye Exam: EOMI, Normal appearance - ENT Exam ENT Exam: Mucous Membranes Moist - Neck Exam Neck exam: Full Rom - Respiratory Exam Respiratory Exam: Clear to PA & Lateral, NORMAL BREATHING PATTERN. absent: Accessory Muscle Use - Cardiovascular Exam Cardiovascular Exam: REGULAR RHYTHM, +S1, +S2 - GI/Abdominal Exam GI & Abdominal Exam: Soft, Tenderness (slight tenderness in right lower quadrant. no rebound). absent: Distended, Firm, Guarding, Rebound, Rigid - Extremities Exam Extremities exam: full ROM - Neurological Exam Neurological exam: Alert, CN II-XII Intact, Oriented x3 Discharge Plan - Discharge Medications Prescriptions: Ciprofloxacin [Cipro] 500 mg PO BID #20 tab Metronidazole [Flagyl] 500 mg PO TID #30 tab - Follow Up Plan Condition: STABLE Disposition: HOME/ ROUTINE Instructions: Heart Healthy Diet, Diabetic Meal Planning , Perforation of the GI Tract (DC) Additional Instructions: - Take Cipro and Flagyl for 10 more days - Follow up with Dr Hartman in 1 week. - Obtain CAT scan of abdomen in 1 week. - Follow up with PMD in 1 week. - Return to ER if fever, chills, abdominal pain that's worsening, nausea, vomiting, diarrhea, bloody bowel movements. Referrals: Isak Ervin Ae, APN [Primary Care Provider] - <Rafael Hernandez - Last Filed: 01/06/18 13:22> Provider - Provider Date of Admission: 01/03/18 16:21 Attending physician: Rafael Hernandez MD Primary care physician: Isak Ervin APN Hospital Course - Lab Results Lab Results: Most Recent Lab Values WBC 4.8 10^3/ul (4.5-11.0) D 01/06/18 06:30 RBC 3.80 10^6/uL (3.5-6.1) 01/06/18 06:30 Hgb 9.5 g/dL (12.0-16.0) L 01/06/18 06:30 Hct 30.5 % (36.0-48.0) L 01/06/18 06:30 MCV 80.3 fl (80.0-105.0) 01/06/18 06:30 MCH 25.0 pg (25.0-35.0) 01/06/18 06:30 MCHC 31.1 g/dl (31.0-37.0) 01/06/18 06:30 RDW 16.8 % (11.5-14.5) H 01/06/18 06:30 Plt Count 253 10^3/uL (120.0-450.0) 01/06/18 06:30 MPV 9.5 fl (7.0-11.0) 01/06/18 06:30 Gran % 52.6 % (50.0-68.0) 01/06/18 06:30 Lymph % (Auto) 24.2 % (22.0-35.0) 01/06/18 06:30 [place] % (Auto) 10.4 % (1.0-6.0) H 01/06/18 06:30 Eos % (Auto) 12.4 % (1.5-5.0) H 01/06/18 06:30 Baso % (Auto) 0.4 % (0.0-3.0) 01/06/18 06:30 Gran # 2.54 (1.4-6.5) 01/06/18 06:30 Lymph # (Auto) 1.2 (1.2-3.4) 01/06/18 06:30 [place] # (Auto) 0.5 (0.1-0.6) 01/06/18 06:30 Eos # (Auto) 0.6 (0.0-0.7) 01/06/18 06:30 Baso # (Auto) 0.02 K/mm3 (0.0-2.0) 01/06/18 06:30 PT 12.7 SECONDS (9.4-12.5) H 01/03/18 11:45 INR 1.11 (0.93-1.08) H 01/03/18 11:45 Sodium 142 mmol/L (132-148) 01/06/18 06:30 Potassium 3.8 mmol/L (3.6-5.0) 01/06/18 06:30 Chloride 106 mmol/L (98-107) 01/06/18 06:30 Carbon Dioxide 25 mmol/L (21-33) 01/06/18 06:30 Anion Gap 14 (10-20) 01/06/18 06:30 BUN 8 mg/dL (7-21) 01/06/18 06:30 Creatinine 0.7 mg/dl (0.7-1.2) 01/06/18 06:30 Est GFR ( Amer) > 60 01/06/18 06:30 Est GFR (Non-Af Amer) > 60 01/06/18 06:30 POC Glucose (mg/dL) 128 mg/dL (65-110) H 01/06/18 11:19 Random Glucose 110 mg/dL (70-110) 01/06/18 06:30 Calcium 9.0 mg/dL (8.4-10.5) 01/06/18 06:30 Phosphorus 3.7 mg/dL (2.5-4.5) 01/05/18 07:00 Magnesium 2.0 mg/dL (1.7-2.2) 01/05/18 07:00 Total Bilirubin 0.5 mg/dL (0.2-1.3) 01/06/18 06:30 AST 19 U/L (14-36) 01/06/18 06:30 ALT 27 U/L (7-56) 01/06/18 06:30 Alkaline Phosphatase 61 U/L (38-126) 01/06/18 06:30 Total Protein 6.3 g/dL (5.8-8.3) 01/06/18 06:30 Albumin 3.1 g/dL (3.0-4.8) 01/06/18 06:30 Globulin 3.3 gm/dL 01/06/18 06:30 Albumin/Globulin Ratio 0.9 (1.1-1.8) L 01/06/18 06:30 Urine Color Yellow (YELLOW) 01/03/18 15:35 Urine Appearance Clear (CLEAR) 01/03/18 15:35 Urine pH 6.0 (4.7-8.0) 01/03/18 15:35 Ur Specific [place] <= 1.005 (1.005-1.035) 01/03/18 15:35 Urine Protein Negative mg/dL (<30 mg/dL) 01/03/18 15:35 Urine Glucose (UA) Negative mg/dL (NEGATIVE) 01/03/18 15:35 Urine Ketones Negative mg/dL (NEGATIVE) 01/03/18 15:35 Urine Blood Trace-intact (NEGATIVE) H 01/03/18 15:35 Urine Nitrate Negative (NEGATIVE) 01/03/18 15:35 Urine Bilirubin Negative (NEGATIVE) 01/03/18 15:35 Urine Urobilinogen 0.2 E.U./dL (<1 E.U./dL) 01/03/18 15:35 Ur Leukocyte Esterase Negative Sakina/uL (NEGATIVE) 01/03/18 15:35 Urine RBC 0 - 2 /hpf (0-2) 01/03/18 15:35 Urine WBC 1 - 3 /hpf (0-6) 01/03/18 15:35 Ur Epithelial Cells 1 - 3 /hpf (0-5) 01/03/18 15:35 Urine Bacteria Few (NEG) 01/03/18 15:35 Blood Type O POSITIVE 01/03/18 14:00 Blood Type Confirm O POSITIVE 01/03/18 14:40 Antibody Screen Negative 01/03/18 14:00 BBK History Checked No verified bt 01/03/18 14:00 Attending/Attestation - Attestation I have personally seen and examined this patient.: Yes I have fully participated in the care of the patient.: Yes I have reviewed all pertinent clinical information, including history, physical exam and plan: Yes Notes (Text): 01/06/18 13:18 Medical record note made by the resident after discussion with my direction and input after the patient was personally seen and examined by me. I have reviewed the chart and agree that the record accurately reflects by personal performance of the history, physical exam, data review, and medical decision-making, in the course for the patient. I have also personally directed the plan of care. 77 yrs old female with Sigmoid Peroration after Colonoscopy, abdominal pain is better, WBC back to normal, Patient is tolerating soft diet with out any issue. She has been cleared by surgery for discharge.She has been advised to stay with soft diet at this time.Blood sugars are in acceptable range at the time of discharge.She has been advised to keep record for her PCP and monitor her blood sugars 3 times a day.Metformin is on hold at the time of discharge.Blood pressure is stable with out any medication.ARB is on hold , she has been advised to monitor blood pressure and keep record for PCP. Patient will follow up with Surgery and PCP as out patient. Management plan was discussed in detail with patient. Education was provided.
[2018-01-06 12:10] VITALS: BP 152/67; PULSE 68; RESP 20; TEMP 98.3
--- NOTE | 2018-01-06 16:37 | CP.PCM.PN ---
Subjective - Date & Time of Evaluation Date of Evaluation: 01/06/18 Time of Evaluation: 12:00 - Subjective Subjective: Infectious Disease Follow Up: January 06, 2018 77 yo female who had colonoscopy done by Dr. Antonio of GI affliated with [facility] for ongoing anemia. The patient began having abdominal pain after procedure was done that was worsening. Abdominal pain worsened and she was sent to the hospital by her son (via phone call) once she told her son that she couldn't move. CT scan showing free air and signs of perforation at the sigmoid colon. Dr. Hartman of surgery is involved in the patient's care and has reviewed the films. At this point in time, medical management of the perforation. Started on Cipro and Flagyl. The patient also had a three month stay in [facility] returning in November 2017. The patient states the pain in less in the abdominal but still present. No new issues overnight. On Cipro and Flagyl. Continue to monitor closely. The patient is feeling better and ambulating the floors. No complaints at this time. Tolerated liquid diet. Having diet advanced and now tolerated solids. For discharge today. Objective - Vital Signs/Intake and Output Vital Signs (last 24 hours): Temp Pulse Resp BP Pulse Ox 98.3 F 68 20 152/67 H 97 01/06/18 12:00 01/06/18 12:00 01/06/18 12:00 01/06/18 12:00 01/06/18 05:34 Intake and Output: 01/06/18 01/06/18 06:59 18:59 Intake Total 1300 1230 Output Total 1050 Balance 250 1230 - Labs Labs: 01/06/18 06:30 01/06/18 06:30 PT 12.7 SECONDS (9.4-12.5) H 01/03/18 11:45 INR 1.11 (0.93-1.08) H 01/03/18 11:45 - Constitutional Appears: Non-toxic, No Acute Distress - Head Exam Head Exam: ATRAUMATIC, NORMOCEPHALIC - Eye Exam Eye Exam: EOMI, PERRL Pupil Exam: NORMAL ACCOMODATION, PERRL - ENT Exam ENT Exam: Mucous Membranes Moist, Normal External Ear Exam, TM's Normal Bilaterally - Neck Exam Neck Exam: Full ROM, Normal Inspection - Respiratory Exam Respiratory Exam: Clear to Ausculation Bilateral, NORMAL BREATHING PATTERN. absent: Rales, Rhonchi, Wheezes - Cardiovascular Exam Cardiovascular Exam: REGULAR RHYTHM, RRR, +S1, +S2 - GI/Abdominal Exam GI & Abdominal Exam: Soft, Normal Bowel Sounds. absent: Distended, Tenderness - Extremities Exam Extremities Exam: Full ROM, Normal Inspection - Neurological Exam Neurological Exam: Alert, Awake, CN II-XII Intact, Oriented x3 - Psychiatric Exam Psychiatric exam: Normal Affect, Normal Mood - Skin Skin Exam: Intact, Normal Color Assessment and Plan - Assessment and Plan (Free Text) Assessment: 77 yo female with recent colonoscopy presenting with worsening abdominal pain. Imaging studies showing signs of perforation with free air around sigmoid colon. For conversative treatment with surgery at this time. Started on Cipro and Flagyl for antibiotic coverage. This combination is a good starting point. Monitor labs, patient's pain complaints, and fever trend. May need to consider change in antibiotics to Zosyn if any signs of worsening. Noted recent travel to [facility]. Continuing with Cipro and Flagyl. Patient remains stable. When ready for discharge, continue with oral Cipro and Flagyl for at least 14 days more. For discharge today. Case discussed with Internal Medicine team and Dr. Silvestre as well as Surgical team and Dr. Hartman. Thank you for allowing me to participate in the care of the patient, we will follow with you.
--- NOTE | 2018-01-07 09:57 | AN ---
I saw this patient on Saturday for the first time and reviewed the notes from the Digital Media Coordinator and agree with their evaluation and workup. There is a CAT scan done in the Emergency Room showing pericolonic air that is not enclosed by lumen. It seems to be contained in the retroperitoneum, there is nothing above the liver. There is gas in the right pericolic gutter and in the pelvis. that the patient had a coloscopy that was aborted in [facility] done 2 days ago and has had abdominal pain since then. No nausea, vomiting or diarrhea, but the pain is severe and at the requests of the patient's son, who is surgeon in [place], the patient is in the Emergency Room and was admitted. Vital signs are normal. The patient is afebrile. Initially, there was a mild tenderness in the right lower quadrant, but does resolved presently today and this is 5 days after the event. She has had multiple bowel movements that are not bloody. She has some pain, but certainly not a lot, is passing gas. No nausea, vomiting, or diarrhea. White count initially is 14 on admission, but now it is 4.8. Abdomen is soft and nontender today. Long discussion with the son. The plan will be to send her home on oral antibiotics without surgical intervention. My plan is to repeat CAT scan probably tomorrow or Saturday. Son asked that this be delayed, might not be necessary. In addition, no surgical intervention is planned. Reports are pending from various colonoscopies, apparently a year or 2 ago that was normal. The patient is to be seen in my office in about a week. Connor Hartman MD
== END 2018-01-06 14:17 | disposition home or self-care (01) | DRG 919 ==
LOC: ED 10:39 → ERH 16:21 → 3RSO 19:31
PROVIDERS: ADMIT Internal Medicine; ATTEND Internal Medicine
DX: K91.71 Accidental puncture and laceration of a digestive system organ or structure during a digestive system procedure (principal); K63.1 Perforation of intestine (nontraumatic); D64.9 Anemia, unspecified; E11.9 Type 2 diabetes mellitus without complications; I10 Essential (primary) hypertension; K57.90 Diverticulosis of intestine, part unspecified, without perforation or abscess without bleeding; Z79.84 Long term (current) use of oral hypoglycemic drugs; Z90.710 Acquired absence of both cervix and uterus

== ENCOUNTER 2018-12-22 13:36 | Outpatient (CLI) | payer MEDICARE | END 2018-12-22 13:37 | disposition home or self-care (01) | LOC: LAB 13:36 ==

== ENCOUNTER 2019-03-12 18:49 | Emergency (ER) | payer MEDICARE ==
[2019-03-12 18:49] VITALS: BMI 28.3
[2019-03-12 19:36] VITALS: TEMP 97.9
--- NOTE | 2019-03-12 19:46 | ED PDOC ---
Arrival/HPI - General Chief Complaint: Dizziness/Lightheaded Time Seen by Provider: 03/12/19 19:35 - History of Present Illness Narrative History of Present Illness (Text): 78 y/o F p/w dizziness x 1 hour. Patient states mopping the floor when she suddenly became dizzy, described as spinning with nausea. She denies fever, neck pain, chest pain, dyspnea, vomiting, numbness, weakness, vision change. States has had headache for 3 days. 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, ulcer r ft 5th toe healed - Psychiatric Hx Physical Abuse: No Hx Substance Use: No - Surgical History Hx Hysterectomy: Yes Hx Orthopedic Surgery: Yes (Sumanth knee surgery) Other/Comment[place] [facility] [place] b/l ft bunionectomy, b/l knee sx left knee torn meniscus, r knee replacement, 05/30/17 arthroplasty r ft 5th toe with bone bx and hammertoe deformity healed - Anesthesia Hx Anesthesia: Yes Hx Anesthesia Reactions: No Hx Malignant Hyperthermia: No - Suicidal Assessment Feels Threatened In Home Enviroment: No Family/Social History - Physician Review Nursing Documentation Reviewed: Yes Family/Social History: No Known Family HX Smoking Status: Never Smoked Hx Alcohol Use: No Hx Substance Use: No Allergies/Home Meds Allergies/Adverse Reactions: Allergies No Known Allergies Allergy (Verified 05/20/16 14:28) Home Medications: Home Meds Medication Instructions Recorded Confirmed Alendronate [Fosamax] 70 mg PO WED 05/23/17 01/03/18 Review of Systems - Physician Review All systems were reviewed & negative as marked: Yes - Review of Systems Constitutional: absent: Fevers Respiratory: absent: SOB Physical Exam - Physical Exam Narrative Physical Exam (Text): gen nad head nc/at eyes perrl ent mmm. positive stephanie hallpike neck supple chest no tenderness cv reg rate lungs cta b/l abd soft, nt, nd back no cva tenderness extremities no edema neuro alert, no focal deficit skin no rash Vital Signs Temp Pulse Resp BP Pulse Ox 03/12/19 19:22 97.9 F 86 18 170/88 H 94 L Finger Stick Blood Glucose: 146 Medical Decision Making ED Course and Treatment: 03/12/19 20:57 Signs and symptoms consistent with BPPV. Treat with meclizine. 03/12/2019 20:[address] IMPRESSION: 1. There is generalized parenchymal atrophy. 2. Chronic periventricular and subcortical microvascular disease is seen. 3. No acute intracranial pathology. Dictator: Brian Adair MD 03/12/19 20:59 Discharge home, f/u ENT, return to ED for intractible vertigo, vomiting, neuro deficit, or any other problem. - RAD Interpretation Radiology Orders: 03/12/19 19:43 HEAD W/O CONTRAST [CT] Stat - Medication Orders Current Medication Orders: Discontinued Medications Meclizine HCl (Antivert) 50 mg PO STAT STA Stop: 03/12/19 19:44 Disposition/Present on Arrival - Present on Arrival Any Indicators Present on Arrival: No History of DVT/PE: No History of Uncontrolled Diabetes: No Urinary Catheter: No History of Decub. Ulcer: No History Surgical Site Infection Following: None - Disposition Have Diagnosis and Disposition been Completed?: Yes Diagnosis: BPPV (benign paroxysmal positional vertigo) Disposition: HOME/ ROUTINE Disposition Time: 21:00 Patient Plan: Discharge Condition: GOOD Discharge Instructions (ExitCare): Vertigo (a Type of Dizziness) Prescriptions: Meclizine [Antivert] 25 mg PO TID PRN #20 tab PRN Reason: Dizziness Referrals: Noe Jang DO [Staff Provider] - Follow up with primary Forms: [employer] ([place])
[2019-03-12 21:30] VITALS: BP 159/58; PULSE 82; RESP 17; O2SAT 95
--- NOTE | 2019-03-13 08:56 | CT ---
Date of service: 03/12/2019 PROCEDURE: CT HEAD WITHOUT CONTRAST. HISTORY: headache x 3 days, vertigo today COMPARISON: Non contrast head CT performed 05/20/16 TECHNIQUE: Axial computed tomography images were obtained through the head/brain without intravenous contrast. Radiation dose: Total exam DLP = 894.52 mGy-cm. This CT exam was performed using one or more of the following dose reduction techniques: Automated exposure control, adjustment of the mA and/or kV according to patient size, and/or use of iterative reconstruction technique. FINDINGS: HEMORRHAGE: No intracranial hemorrhage. BRAIN: Diffuse atrophy with prominence of the ventricles and sulci noted. No mass effect or edema. Intracranial atherosclerosis. Scattered periventricular and subcortical white matter hypodensities, which are nonspecific, but often seen with chronic microvascular ischemic disease. Please note that MRI with diffusion imaging is more sensitive in the detection of acute ischemic event. VENTRICLES: No hydrocephalus. CALVARIUM: Unremarkable. PARANASAL SINUSES: Fluid within the right maxillary sinus. Mucosal thickening of the ethmoid air cells. MASTOID AIR CELLS: Unremarkable as visualized. No inflammatory changes. OTHER FINDINGS: None. IMPRESSION: No acute intracranial pathology identified. Fluid within the right maxillary sinus. Mucosal thickening of the ethmoid air cells. Correlate clinically for sinusitis. Preliminary impression was provided by [employer] [employer] [facility]. Study marked for PA review.
--- NOTE | 2019-03-13 16:18 | CARD ---
APPROVED REPORT Date of service: 03/12/2019 EKG Measurement Heart [id number] <Conclusion> Normal sinus rhythm Right bundle branch block Abnormal ECG
== END 2019-03-12 21:20 | disposition home or self-care (01) ==
LOC: ED 18:49
DX: H81.10 Benign paroxysmal vertigo, unspecified ear (principal); E11.9 Type 2 diabetes mellitus without complications; I10 Essential (primary) hypertension; M81.0 Age-related osteoporosis without current pathological fracture